=== PATIENT | male | born 1970 | race Hispanic/Latino ===

== ENCOUNTER 2016-12-02 03:19 | Inpatient (IN) | payer MEDICAID ==
[2016-12-02] MEDS ORDERED: Albuterol-Ipratrop 3 mg / 0.5 (3 ml) UD INH STA (03:55)
[2016-12-02 04:11] LABS: EOS # 0.3 K/uL (0.0-0.7)
[2016-12-02 04:17] LABS: CHLORIDE 100 mmol/L (98-107); POTASSIUM 3.7 mmol/L (3.6-5.2); SODIUM 139 mmol/L (132-148)
[2016-12-02 04:19] LABS: GFR AFRICAN-AMERICAN > 60
[2016-12-02 04:20] LABS: ALB/GLOB RATIO 1.2 (1.0-2.1); ALKALINE PHOSPHATASE 77 U/L (38-126); ALT/SGPT 24 U/L (21-72); AST/SGOT 24 U/L (17-59); BILIRUBIN,TOTAL 0.2 mg/dL (0.2-1.3); BLOOD UREA NITROGEN 21 mg/dL (9-20); CARBON DIOXIDE 29 mmol/L (22-30); GLUCOSE,RANDOM 159 mg/dL (75-110); TOTAL PROTEIN 6.3 g/dL (6.3-8.3)
[2016-12-02 04:34] LABS: BASO # 0.1 K/uL (0.0-0.2); BASO % 0.6 % (0.0-2.0); EOS % 2.8 % (0.0-4.0); LYMPH # 2.1 K/uL (1.0-4.3); LYMPH % 23.6 % (20.0-40.0); MEAN CELL VOLUME 89.1 fL (80.0-94.0); MEAN CORPUSCULAR HEMOGLOBIN 29.1 pg (27.0-31.0); MEAN CORPUSCULAR HGB CONC 32.7 g/dL (33.0-37.0); MEAN PLATELET VOLUME 6.5 fL (7.2-11.7); MONO # 0.6 K/uL (0.0-0.8); MONO % 6.2 % (0.0-10.0); RED CELL DISTRIBUTION WIDTH 15.3 % (11.5-14.5); WHITE BLOOD COUNT 9.1 K/uL (4.8-10.8)
--- NOTE | 2016-12-02 06:08 | C.PDOC ---
History Of Present Illness 46 year old male presents to the ED by ALS with complaints of asthma like symptoms including dry cough since early last evening. Patient denies taking any medicine, chest pain, fever, sick contacts, and recent travel. Chief Complaint (Nursing): Shortness Of Breath History Per: Patient History/Exam Limitations: no limitations Onset/Duration Of Symptoms: Hrs Current Symptoms Are (Timing): Still Present Associated Symptoms: Other (dry cough ). denies: Fever, Chills, Bloody Cough Past Medical History Reviewed: Historical Data, Nursing Documentation, Vital Signs Vital Signs: Last Vital Signs Temp 98.3 F 12/02/16 06:31 Pulse 83 12/02/16 06:31 Resp 20 12/02/16 06:31 BP 166/90 H 12/02/16 06:31 Pulse Ox 96 12/02/16 06:34 - Medical History PMH: Asthma, HTN, Hypercholesterolemia - [facility] Procedures DETOXIFICATION SERVICES FOR SUBSTANCE ABUSE TREATMENT (05/22/15) Family History: States: Unknown Family Hx - Social History Hx Tobacco Use: Yes Hx Alcohol Use: No Hx Substance Use: Yes - Immunization History Hx Tetanus Toxoid Vaccination: No Hx Influenza Vaccination: No Hx Pneumococcal Vaccination: No Review Of Systems Constitutional: Negative for: Fever, Chills Eyes: Negative for: Pain Cardiovascular: Negative for: Chest Pain Respiratory: Positive for: Cough, Shortness of Breath Gastrointestinal: Negative for: Nausea, Vomiting, Abdominal Pain, Diarrhea Physical Exam - Physical Exam Appears: Non-toxic, No Acute Distress Skin: Warm, Dry Eye(s): bilateral: PERRL, EOMI Ear(s): Bilateral: Normal Nose: Normal Throat: Normal Neck: Normal ROM, Supple Cardiovascular: Rhythm Regular, Other (Sinus rhythm 84 normal axis and normal intervals ) Respiratory: No Accessory Muscle Use, No Rales, No Rhonchi, No Stridor, Wheezing (diffuse expiratory wheeze ) Gastrointestinal/Abdominal: Soft, No Tenderness, No Distention, No Guarding, No Rebound Extremity: Normal ROM, No Tenderness Neurological/Psych: Oriented x3 ED Course And Treatment - Laboratory Results Result Diagrams: 12/02/16 04:06 12/02/16 04:06 O2 Sat by Pulse Oximetry: 96 - Physician Consult Information Time Consulting Physician Contacted: 06:10 (Spoke to Dr. Barillas regarding and choosing to admit) Physician Contacted: Valentino Barillas Disposition - Disposition Disposition: HOSPITALIZED Disposition Time: 05:45 Condition: STABLE - Clinical Impression Clinical Impression: Exacerbation of asthma - Josetteibe Statement The provider has reviewed the documentation as recorded by the Scribe Katelin Camacho All medical record entries made by the Josetteibe were at my direction and personally dictated by me. I have reviewed the chart and agree that the record accurately reflects my personal performance of the history, physical exam, medical decision making, and the department course for this patient. I have also personally directed, reviewed, and agree with the discharge instructions and disposition.
--- NOTE | 2016-12-02 08:14 | RAD ---
HISTORY: r/o infiltrate COMPARISON: No prior. TECHNIQUE: Chest PA and lateral FINDINGS: LUNGS: Mild venous congestion. Right hilar prominence. Small nodular density at the right costophrenic may represent vessel on end. PLEURA: No significant pleural effusion identified. No pneumothorax apparent. CARDIOVASCULAR: Normal. OSSEOUS STRUCTURES: Suggestion of a deformity of several left lateral ribs. VISUALIZED UPPER ABDOMEN: Normal. OTHER FINDINGS: None. IMPRESSION: Mild venous congestion. Right hilar prominence. Small nodular density at the right costophrenic may represent vessel on end.
[2016-12-02] MEDS: Pantoprazole 40 mg EC Tab PO SCH (09:13)
[2016-12-02] MEDS: MethylPREDNISolone 40 mg Vial IV SCH ×2 (12:53→20:16)
--- NOTE | 2016-12-02 13:38 | PCM.PSYCH ---
Initial Psychiatric Evaluation - Initial Psychiatric Evaluation Type of Admission: Voluntary Legal Status: Capacity Chief Complaint (in patient's own words): I came here to get help. History of Present Illness and Precipitating Events: This is a 46 years old homeless CM who came to the ED because of asthma exacerbation. today pt was consulted because of h/o heroin abuse. Patient has a long history of abusing heroin. He was just discharged from [facility] detox last year. As per the patient, soon he relapsed on heroin soon after finishing his detox last year. He ahs been abusing 10-15 bags of heroin alongwith a couple of bags of cocaine on a daily basis. Yesterday he injected almost 10 bags along with 2 bags of cocaine, became increasingly anxious and sated developing withdrawal s/s, and shortness of breath, so came to the hospital to get help. Pt reports anxiety and withdrawal symptoms from heroin including sweating, nausea, anxiety and headaches. Patient states irritable mood, but denies any feelings of hopelessness and helplessness. He denies any SI/HI or any auditory or visual hallucinations. He denies any other substance abuse. Current Medications: Active Medications Generic Name Dose Route Start Last Admin Trade Name Primoq PRN Reason Stop Dose Admin Albuterol/Ipratropium 3 ml 12/02/16 08:00 Duoneb 3 Mg/0.5 Mg (3 Ml) Ud INH RQ4 [facility] Clonidine HCl 0.2 mg 12/02/16 13:00 12/02/16 13:16 Catapres PO 0.2 mg BID [facility] Administration Methadone HCl 10 mg 12/02/16 10:00 12/02/16 09:13 Methadone PO 10 mg DAILY [facility] Administration Methylprednisolone 40 mg 12/02/16 12:00 12/02/16 12:53 Solu-Medrol IV 40 mg Q6 [facility] Administration Pantoprazole Sodium 40 mg 12/02/16 10:00 12/02/16 09:13 Protonix Ec Tab PO 40 mg DAILY [facility] Administration Pneumococcal Polyvalent Vaccine 0.5 ml 12/04/16 10:00 Pneumovax 23 Vaccine IM 12/04/16 10:01 .ONCE ONE Past Psychiatric History - Past Psychiatric History Previous Treatment History: Inpatient Pertinent Medical Hx (Current Medical&Sleep Prob, Allergies): Allergies Allergy/AdvReac Type Severity Reaction Status Date / Time No Known Allergies Allergy Unverified 12/02/16 03:35 No Known Home Med 12/02/16 Review of Systems - Review of Systems All systems: reviewed and no additional remarkable complaints except - Psychiatric Psychiatric: Anxiety, Irritability Mental Status Examination - Personal Presentation Personal Presentation: Looks stated age - Affect Affect: Constricted - Motor Activity Motor Activity: Calm - Reliability in Providing Information Reliability in Providing Information: Good - Speech Speech: Organized - Mood Mood: Anxious - Formal Thought Process Formal Thought Process: No Impairment - Obsessions/Compulsions Obsessions: No Compulsions: No - Cognitive Functions Orientation: Person, Place, Situation, Time Sensorium: Alert Attention/Concentration: Attentive Abstract Thinking: [place] Estimate of Intelligence: Average Judgement: Imparied, as evidence by: Poor judgement, Intact, as evidence by: Insight regarding need for hospitalization - Risk Risk: Withdrawal, Diminished functioning - Strength & Assets Inventory Strength & Assets Inventory: Cooperative - Limitations Limitations: Living alone DSM 5 DX - DSM 5 DSM 5 Diagnosis: Opioid use disorder severe Opioid withdrawal Cocaine use disorder severe - Recommended/Plan of Treatment Treatment Recommendations and Plan of Treatment: Opioid use disorder severe CBT Psychoeducation Supportive therapy, individual therapy Use ND for abstinence Opioid withdrawal CBT Psychoeducation Supportive therapy, individual therapy Clonidine when necessary Start methadone taper Cocaine use disorder severe CBT Psychoeducation Use ND for abstinence - Smoking Cessation Smoking Cessation Initiated: Yes
[2016-12-03] MEDS: Albuterol-Ipratrop 3 mg / 0.5 (3 ml) UD INH SCH ×6 (00:53→20:46)
[2016-12-03] MEDS: MethylPREDNISolone 40 mg Vial IV SCH ×4 (01:54→17:50)
[2016-12-03] MEDS: Pantoprazole 40 mg EC Tab PO SCH (09:16)
--- NOTE | 2016-12-03 11:07 | CP.PCM.PN ---
Subjective - Date & Time of Evaluation Date of Evaluation: 12/03/16 Time of Evaluation: 08:55 - Subjective Subjective: Medicine Progress Note- Dr. Barillas's service: Patient seen and examined at bedside this AM. 46M admitted 12/02/16 for asthma exacerbation with history of cocaine/opioid abuse. Patient reports he is still not feeling well. Admits to intermittent episodes of chest pain, SOB, abdominal pain, nausea, vomiting. Denies diarrhea or vomiting. Denies tremors. He feels sleepy because he has not been able to sleep due to noise at the hospital. Seen and examined by Dr. Casillas yesterday for cocaine/opioid abuse. Objective - Vital Signs/Intake and Output Vital Signs (last 24 hours): Temp Pulse Resp BP Pulse Ox 97.4 F L 97 H 17 174/104 H 98 12/03/16 07:45 12/03/16 07:45 12/03/16 07:45 12/03/16 07:45 12/03/16 07:45 - Medications Medications: Current Medications Albuterol/Ipratropium (Duoneb 3 Mg/0.5 Mg (3 Ml) Ud) 3 ml INH RQ4 [facility] Last Admin: 12/03/16 09:11 Dose: 3 ml Aspirin (Aspirin Chewable) 81 mg PO DAILY [facility] Last Admin: 12/03/16 09:17 Dose: 81 mg Clonidine HCl (Catapres) 0.2 mg PO BID [facility] Last Admin: 12/03/16 09:16 Dose: 0.2 mg Clonidine HCl (Catapres) 0.1 mg PO Q6 PRN PRN Reason: Opiate reversal Hydrochlorothiazide (Hydrodiuril) 25 mg PO DAILY [facility] Last Admin: 12/03/16 09:16 Dose: 25 mg Lisinopril (Zestril) 20 mg PO DAILY [facility] Last Admin: 12/03/16 09:16 Dose: 20 mg Lorazepam (Ativan) 2 mg IVP Q4H PRN PRN Reason: withdrawal Last Admin: 12/03/16 06:16 Dose: 2 mg Methadone HCl (Methadone) 10 mg PO DAILY [facility] Last Admin: 12/03/16 09:16 Dose: 10 mg Methylprednisolone (Solu-Medrol) 40 mg IV Q6 [facility] Last Admin: 12/03/16 06:16 Dose: 40 mg Nicotine (Nicoderm Cq) 1 patch TD DAILY [facility] Last Admin: 12/03/16 09:17 Dose: 1 patch Pantoprazole Sodium (Protonix Ec Tab) 40 mg PO DAILY [facility] Last Admin: 12/03/16 09:16 Dose: 40 mg Pneumococcal Polyvalent Vaccine (Pneumovax 23 Vaccine) 0.5 ml IM .ONCE ONE Stop: 12/04/16 10:01 Trazodone HCl (Desyrel) 50 mg PO HS [facility] Last Admin: 12/02/16 21:45 Dose: 50 mg - Constitutional Appears: No Acute Distress, Unkempt - Head Exam Head Exam: NORMAL INSPECTION, NORMOCEPHALIC - Eye Exam Eye Exam: EOMI, Normal appearance - ENT Exam ENT Exam: Mucous Membranes Dry - Neck Exam Neck Exam: Full ROM - Respiratory Exam Respiratory Exam: Clear to Ausculation Bilateral, NORMAL BREATHING PATTERN - Cardiovascular Exam Cardiovascular Exam: REGULAR RHYTHM, +S1, +S2 - GI/Abdominal Exam GI & Abdominal Exam: Soft. absent: Distended, Tenderness - Extremities Exam Extremities Exam: Full ROM, Normal Inspection - Neurological Exam Neurological Exam: Alert, Awake, Oriented x3 - Psychiatric Exam Psychiatric exam: Normal Affect, Normal Mood - Skin Skin Exam: Warm. absent: Normal Color Additional comments: +red face Assessment and Plan (1) Asthma exacerbation Assessment & Plan: Albuterol INH Q4H [facility] Solumedrol 40 mg IVP Q6H Status: Acute (2) HTN (hypertension) Assessment & Plan: Elevated this AM. Clonidine 0.2 mg PO BID HCTZ 25 mg PO daily Lisinopril 20 mg ---> 40 mg PO daily NO Beta Aries as patient uses cocaine. Status: Acute (3) Heroin dependence Assessment & Plan: Detox consult placed- Dr. Casillas- following Methadone 10 mg PO daily Clonidine 0.1 mg PO Q6H PRN reversal of opiate Ativan 1mg IVP Q4H PRN withdrawal Trazodone 50 mg PO HS Aspiration and Seizure precautions. Status: Acute (4) Prophylactic measure Assessment & Plan: Protonix 40 mg PO daily SCDs All management as per Dr. Barillas Status: Acute
[2016-12-03 17:17] VITALS: RESP 20; TEMP 98.2
--- NOTE | 2016-12-03 18:39 | CARD ---
APPROVED REPORT EKG Measurement Heart [id number] <Conclusion> Normal sinus rhythm Normal ECG
[2016-12-04] MEDS: MethylPREDNISolone 40 mg Vial IV SCH ×3 (00:01→11:28)
[2016-12-04] MEDS: Albuterol-Ipratrop 3 mg / 0.5 (3 ml) UD INH SCH ×4 (01:13→11:34)
[2016-12-04 01:47] VITALS: BP 139/85
[2016-12-04 07:17] LABS: BASO % 0.5 % (0.0-2.0); HEMATOCRIT 43.3 % (35.0-51.0); LYMPH % 9.7 % (20.0-40.0); MEAN CELL VOLUME 87.6 fL (80.0-94.0); MEAN CORPUSCULAR HEMOGLOBIN 28.9 pg (27.0-31.0); MEAN PLATELET VOLUME 6.5 fL (7.2-11.7); MONO # 0.4 K/uL (0.0-0.8); MONO % 3.4 % (0.0-10.0); PLATELET COUNT 299 K/uL (130-400); RED CELL DISTRIBUTION WIDTH 15.1 % (11.5-14.5); WHITE BLOOD COUNT 10.7 K/uL (4.8-10.8)
[2016-12-04 07:31] LABS: CHLORIDE 95 mmol/L (98-107); POTASSIUM 4.3 mmol/L (3.6-5.2); SODIUM 138 mmol/L (132-148)
[2016-12-04 07:33] LABS: ALB/GLOB RATIO 1.2 (1.0-2.1); ALKALINE PHOSPHATASE 66 U/L (38-126); AST/SGOT 19 U/L (17-59); BILIRUBIN,TOTAL 0.5 mg/dL (0.2-1.3); CARBON DIOXIDE 28 mmol/L (22-30); GFR AFRICAN-AMERICAN > 60; TOTAL PROTEIN 7.1 g/dL (6.3-8.3)
[2016-12-04 07:34] LABS: ALT/SGPT 12 U/L (21-72); BLOOD UREA NITROGEN 31 mg/dL (9-20); GLUCOSE,RANDOM 145 mg/dL (75-110); MAGNESIUM 1.8 mg/dL (1.6-2.3); PHOSPHOROUS 5.1 mg/dL (2.5-4.5)
[2016-12-04 08:48] LABS: NEUTROPHIL 86 % (50-75); TOTAL CELLS COUNTED 100
--- NOTE | 2016-12-04 09:39 | CP.PCM.PN ---
Subjective - Date & Time of Evaluation Date of Evaluation: 12/04/16 Time of Evaluation: 07:35 - Subjective Subjective: Medicine Progress Note- Dr. Barillas's service: Patient seen and examined at bedside this AM. Patient is sleeping and states he has not slept well secondary to being woken up for vitals and lab draws. He admits to occasional abdominal pain, chest pain, SOB. No fevers, chills, diarrhea. He reports poor appetite. Requesting detox. Discharge planning as per Dr. Barillas. Objective - Vital Signs/Intake and Output Vital Signs (last 24 hours): Temp Pulse Resp BP Pulse Ox 98.2 F 93 H 20 139/85 97 12/03/16 23:35 12/04/16 04:51 12/03/16 23:35 12/03/16 23:35 12/03/16 23:35 Intake and Output: 12/04/16 12/04/16 06:59 18:59 Intake Total 900 Output Total 800 Balance 100 - Medications Medications: Current Medications Albuterol/Ipratropium (Duoneb 3 Mg/0.5 Mg (3 Ml) Ud) 3 ml INH RQ4 [facility] Last Admin: 12/04/16 07:25 Dose: Not Given Aspirin (Aspirin Chewable) 81 mg PO DAILY [facility] Last Admin: 12/03/16 09:17 Dose: 81 mg Clonidine HCl (Catapres) 0.2 mg PO BID [facility] Last Admin: 12/03/16 17:53 Dose: 0.2 mg Clonidine HCl (Catapres) 0.1 mg PO Q6 PRN PRN Reason: Opiate reversal Hydrochlorothiazide (Hydrodiuril) 25 mg PO DAILY [facility] Last Admin: 12/03/16 09:16 Dose: 25 mg Lisinopril (Zestril) 40 mg PO DAILY [facility] Lorazepam (Ativan) 2 mg IVP Q4H PRN PRN Reason: withdrawal Last Admin: 12/04/16 00:02 Dose: 2 mg Methadone HCl (Methadone) 10 mg PO DAILY [facility] Last Admin: 12/03/16 09:16 Dose: 10 mg Methylprednisolone (Solu-Medrol) 40 mg IV Q6 [facility] Last Admin: 12/04/16 05:19 Dose: 40 mg Nicotine (Nicoderm Cq) 1 patch TD DAILY [facility] Last Admin: 12/03/16 09:17 Dose: 1 patch Pantoprazole Sodium (Protonix Ec Tab) 40 mg PO DAILY [facility] Last Admin: 12/03/16 09:16 Dose: 40 mg Pneumococcal Polyvalent Vaccine (Pneumovax 23 Vaccine) 0.5 ml IM .ONCE ONE Stop: 12/04/16 10:01 Trazodone HCl (Desyrel) 50 mg PO HS [facility] Last Admin: 12/03/16 21:27 Dose: 50 mg - Labs Labs: 12/04/16 06:47 12/04/16 06:47 - Constitutional Appears: No Acute Distress, Unkempt - Eye Exam Eye Exam: EOMI, Normal appearance - ENT Exam ENT Exam: Mucous Membranes Moist - Neck Exam Neck Exam: Full ROM, Normal Inspection - Respiratory Exam Respiratory Exam: Clear to Ausculation Bilateral, NORMAL BREATHING PATTERN - Cardiovascular Exam Cardiovascular Exam: REGULAR RHYTHM, +S1, +S2 - GI/Abdominal Exam GI & Abdominal Exam: Soft. absent: Distended, Tenderness - Extremities Exam Extremities Exam: Full ROM, Normal Inspection - Neurological Exam Neurological Exam: Alert, Awake - Psychiatric Exam Psychiatric exam: Normal Mood - Skin Skin Exam: Dry, Warm Additional comments: flushed face Assessment and Plan - Assessment and Plan (Free Text) Assessment: (1) Asthma exacerbation Assessment & Plan: Patient discharged with Ventolin HFA, Advair Q12H, Medrol dose pack. Status: Acute (2) HTN (hypertension) Assessment & Plan: Improved. Patient discharged on: Clonidine 0.2 mg PO BID HCTZ 25 mg PO daily Lisinopril 40 mg PO daily NO Beta Aries as patient uses cocaine. Status: Acute (3) Heroin dependence Assessment & Plan: Detox consult placed- Dr. Casillas- following As per psych team, referred patient is candidate for IOP [facility]. Status: Acute (4) Prophylactic measure Assessment & Plan: Protonix 40 mg PO daily SCDs Discharge planning as per Dr. Barillas All management as per Dr. Barillas Status: Acute
[2016-12-04] MEDS: Pantoprazole 40 mg EC Tab PO SCH (09:53)
[2016-12-04] MEDS ORDERED: Pneumococcal 23-Valent Vaccine IM ONE (10:00)
[2016-12-04 11:45] VITALS: PULSE 109; O2SAT 92
== END 2016-12-04 14:59 | disposition home or self-care (01) | DRG 96 ==
LOC: C.ER 03:19 → C.9E 06:12 → C.3T 06:27 → C.6T 14:29
PROVIDERS: ADMIT Internal Medicine Pulmonary Disease; ATTEND Internal Medicine Pulmonary Disease
PROC: HZ2ZZZZ Detoxification Services for Substance Abuse Treatment (ICD-10-PCS; principal; 2016-12-02)
DX: J45.901 Unspecified asthma with (acute) exacerbation (principal); F11.23 Opioid dependence with withdrawal; I10 Essential (primary) hypertension; F14.90 Cocaine use, unspecified, uncomplicated; E78.00 Pure hypercholesterolemia, unspecified; F17.210 Nicotine dependence, cigarettes, uncomplicated

== ENCOUNTER 2017-01-15 17:11 | Inpatient (IN) | payer MEDICAID ==
[2017-01-15] MEDS ORDERED: Bacitracin 500 Units/gm Oint Foilpak UD TOP ONE (18:25)
[2017-01-15] MEDS ORDERED: Albuterol-Ipratrop 3 mg / 0.5 (3 ml) UD IH STA ×2 (18:25→19:55)
[2017-01-15 18:45] LABS: BASO # 0.1 K/uL (0.0-0.2); EOS # 0.1 K/uL (0.0-0.7); EOS % 1.3 % (0.0-4.0); HEMATOCRIT 35.6 % (35.0-51.0); LYMPH # 1.9 K/uL (1.0-4.3); LYMPH % 26.6 % (20.0-40.0); MEAN CELL VOLUME 90.2 fL (80.0-94.0); MEAN CORPUSCULAR HEMOGLOBIN 30.2 pg (27.0-31.0); MEAN CORPUSCULAR HGB CONC 33.5 g/dL (33.0-37.0); MEAN PLATELET VOLUME 6.3 fL (7.2-11.7); MONO # 0.5 K/uL (0.0-0.8); RED CELL DISTRIBUTION WIDTH 14.8 % (11.5-14.5); WHITE BLOOD COUNT 7.2 K/uL (4.8-10.8)
[2017-01-15] MEDS ORDERED: Albuterol-Ipratrop 3 mg / 0.5 (3 ml) UD ONE ×2 (18:47→20:10)
[2017-01-15 18:48] LABS: RBC URINE < 1 /hpf (0-3); URINE BILIRUBIN NEGATIVE (NEGATIVE); URINE BLOOD NEGATIVE (NEGATIVE); URINE COLOR Yellow (YELLOW); URINE GLUCOSE (UA) NORMAL (Normal); URINE KETONE NEGATIVE (NEGATIVE); URINE LEUKOCYTE ESTERASE NEG Leu/uL (Negative); URINE PROTEIN 1+ mg/dL (NEGATIVE); URINE UROBILINOGEN NORMAL mg/dL (0.2-1.0); WBC URINE < 1 /hpf (0-5)
[2017-01-15 18:53] LABS: CHLORIDE 100 mmol/L (98-107)
[2017-01-15] MEDS ORDERED: Bacitracin 500 Units/gm Oint Foilpak UD ONE (18:53)
[2017-01-15 18:54] LABS: POTASSIUM 3.9 mmol/L (3.6-5.2); SODIUM 137 mmol/L (132-148)
[2017-01-15 18:56] LABS: ALB/GLOB RATIO 1.3 (1.0-2.1); ALKALINE PHOSPHATASE 67 U/L (38-126); ALT/SGPT 24 U/L (21-72); AST/SGOT 33 U/L (17-59); BILIRUBIN,TOTAL 0.7 mg/dL (0.2-1.3); BLOOD UREA NITROGEN 18 mg/dL (9-20); CARBON DIOXIDE 32 mmol/L (22-30); GFR AFRICAN-AMERICAN > 60; TOTAL PROTEIN 6.2 g/dL (6.3-8.3)
[2017-01-15 18:57] LABS: GLUCOSE,RANDOM 127 mg/dL (75-110)
[2017-01-15 18:58] LABS: ALCOHOL SERUM < 10 mg/dl (0-10); CALCIUM 8.4 mg/dl (8.6-10.4)
[2017-01-15] MEDS ORDERED: Amoxicillin-Clav 875-125 mg Tab PO STA (19:55)
[2017-01-15] MEDS ORDERED: Amoxicillin-Clav 875-125 mg Tab PO ONE (20:08)
--- NOTE | 2017-01-15 20:38 | RAD ---
PROCEDURE: CHEST RADIOGRAPH, 1 VIEW HISTORY: Detox/Psy COMPARISON: 12/02/2016 FINDINGS: LUNGS: No focal infiltrate or effusion. Bibasilar nodular densities may represent nipple shadows. Correlation with nipple markers may be helpful. PLEURA: No pneumothorax or pleural fluid seen. CARDIOVASCULAR: Normal. OSSEOUS STRUCTURES: No significant abnormalities. VISUALIZED UPPER ABDOMEN: Normal. OTHER FINDINGS: None. IMPRESSION: No active disease.
--- NOTE | 2017-01-15 20:39 | C.PDOC ---
Time Seen by Provider: 01/15/17 18:18 Chief Complaint (Nursing): Substance Abuse History Per: Patient Onset/Duration Of Symptoms: Days Current Symptoms Are (Timing): Still Present Suicide/Self Injury Attempted (Context): None Modifying Factor(s): Narcotics Severity: Moderate Associated Symptoms: Depression. denies: Suicidal Plan Additional History Per: Prior Records Past Medical History Reviewed: Historical Data, Nursing Documentation, Vital Signs Vital Signs: Last Vital Signs Temp 97.4 F L 01/15/17 19:50 Pulse 83 01/15/17 19:50 Resp 16 01/15/17 19:50 BP 159/96 H 01/15/17 19:50 Pulse Ox 98 01/15/17 19:50 - Medical History PMH: Asthma, COPD, HTN, Hypercholesterolemia - [facility] Procedures DETOXIFICATION SERVICES FOR SUBSTANCE ABUSE TREATMENT (12/02/16) Family History: States: Unknown Family Hx - Social History Hx Tobacco Use: Yes Hx Alcohol Use: No Hx Substance Use: Yes (snorts Heroin) - Immunization History Hx Tetanus Toxoid Vaccination: No Hx Influenza Vaccination: No Hx Pneumococcal Vaccination: No Review Of Systems Except As Marked, All Systems Reviewed And Found Negative. Constitutional: Negative for: Fever Cardiovascular: Negative for: Chest Pain Respiratory: Positive for: Wheezing. Negative for: Hemoptysis Gastrointestinal: Negative for: Vomiting, Abdominal Pain Musculoskeletal: Negative for: Neck Pain Skin: Positive for: Other (abrasion on left leg) Neurological: Negative for: Weakness, Numbness, Seizures, Altered Mental Status Physical Exam - Physical Exam Appears: Non-toxic, No Acute Distress Skin: Warm, Dry Head: Atraumatic, Normacephalic Eye(s): bilateral: PERRL, EOMI Neck: Normal ROM, Supple Cardiovascular: Rhythm Regular Respiratory: No Accessory Muscle Use, Wheezing Gastrointestinal/Abdominal: Soft, No Tenderness Extremity: Normal ROM, No Calf Tenderness, Other (Abrasion on left anterior leg , possibly starting to get infected. ) Neurological/Psych: Oriented x3, Normal Motor, Normal Sensation ED Course And Treatment - Laboratory Results Result Diagrams: 01/15/17 18:39 01/15/17 18:39 Lab Interpretation: No Acute Changes O2 Sat by Pulse Oximetry: 98 Pulse Ox Interpretation: Normal - Radiology CXR: Interpreted by Me, Viewed By Me CXR Interpretation: Yes: No Acute Disease Progress Note: Pt is medically stable for psychiatric admission. However, I recommend continuing the Prednisone for the asthma and the Augmentin for the leg abrasion. Reassessment Condition: Improved Progress - Interventions Interventions:: Observation - Medications Administered Oral: Corticosteriod, Other (Abx) Inhaled nebulized: Anticholinergic, Beta-2 agonist - Data Reviewed Data Reviewed: Lab, Diagnostic imaging, Old records - Patient Status Patient status: Mostly improved - Continuity of Care Discussed patient case with:: Patient, ED Nurse Disposition Counseled Patient/Family Regarding: Studies Performed, Diagnosis, Smoking Cessation - Disposition Disposition: HOSPITALIZED Disposition Time: 20:41 Condition: STABLE - Clinical Impression Clinical Impression: Opioid use disorder, severe, dependence, Depression, COPD (chronic obstructive pulmonary disease), Abrasion of leg, left, infected Decision To Admit - Pt Status Changed To: Hospital Disposition Of: Inpatient - Admit Certification Admit to Inpatient:: After my assessment, the patient will require hospitalization for at least two midnights. This is because of the severity of symptoms shown, intensity of services needed, and/or the medical risk in this patient being treated as an outpatient. - InPatient: Physician Admission Certification: I certify that this patient requires 2 or more midnights of care for the following reason:: Psych. - . Bed Request Type: Psychiatry Admitting Physician: Deanna Pimentel Patient Diagnosis: Opioid use disorder, severe, dependence, Depression, COPD (chronic obstructive pulmonary disease), Abrasion of leg, left, infected
[2017-01-15 21:39] VITALS: BP 162/88; TEMP 98.5; O2SAT 96
[2017-01-15] MEDS ORDERED: Albuterol HFA 90 mcg/actuation (8 g) INH PRN (21:45)
[2017-01-15 22:19] VITALS: PULSE 86; RESP 18
--- NOTE | 2017-01-16 14:59 | PCM.PSYCH ---
Initial Psychiatric Evaluation - Initial Psychiatric Evaluation Type of Admission: Voluntary Legal Status: Capacity Chief Complaint (in patient's own words): "I want to stop using heroin" Patient's Reaction to Hospitalization: voluntary History of Present Illness and Precipitating Events: Patient is a 46 year old male with PMHx of COPD, opioid use disorder and cocaine use disorder presenting to get off of heroin. Patient says he snorts 5- 10 bags per day of heroin for 3 years. He was at a place called [facility] getting maintenance methadone at 90mg. The program found out he was smoking cocaine and said he has to be discharged from the program so they tapered him down by 5mg each time to 10mg at which point he left the program. This was one month ago. He relapsed and started doing 5 to 10 bags of heroin a day again for the past month. Patient says he has lost 100 pounds in the past 3 years secondary to cocaine use. Patient also smokes 1ppd of cigarettes. Patient denies IV drug use, ETOH use and marijuana. Patient denies history of HIV or AIDS or Hep C. Patient says this is his first time in the psychiatric floor and that he wants detox. Patient was very aggravated on exam. He wanted more methadone saying that he was on 90mg previously. It was explained to him that 20 mg last night and 15 this morning should be enough for him since he has only been doing 5 to 10 bags per day for the past month. Patient wanted to leave AMA. Options of suboxone and injections were given to patient. He still wanted to leave AMA. He was screaming in the hallway how he wanted to leave. He was informed that he might feel better in a few hours and to give time for the methadone to kick in. Patient still wanted to go home. 4 hours later, patient was still here and said he no longer wanted to leave. Psychiatric history: denies Family psychiatric history: denies Substance abuse: heroin and cocaine Current Medications: Active Medications Generic Name Dose Route Start Last Admin Trade Name Freq PRN Reason Stop Dose Admin Albuterol 1 puff 01/15/17 21:45 Ventolin Hfa 90 Mcg/Actuation (8 G) INH RQ4 PRN Shortness of Breath Clonidine HCl 0.1 mg 01/15/17 21:47 Catapres PO Q6 PRN s/s of withdrawals Hydroxyzine HCl 50 mg 01/15/17 21:40 01/16/17 09:49 Atarax PO 50 mg Q4 PRN Administration Anxiety Ibuprofen 600 mg 01/15/17 21:40 01/16/17 09:49 Motrin Tab PO 600 mg Q6 PRN Administration Pain, moderate (4-7) Methadone HCl 15 mg 01/16/17 10:00 01/16/17 09:49 Methadone PO 01/19/17 09:59 15 mg Q24H SHERRON Administration Taper Trazodone HCl 100 mg 01/15/17 21:40 01/15/17 21:56 Desyrel PO 100 mg HS PRN Administration Insomnia Past Psychiatric History - Past Psychiatric History Previous Treatment History: Inpatient Prior Professional Help: Yes Prior Psychiatric Treatment: Detox At [facility] hospital: [facility] Date: 05/23/15 Pertinent Medical Hx (Current Medical&Sleep Prob, Allergies): Allergies Allergy/AdvReac Type Severity Reaction Status Date / Time No Known Allergies Allergy Verified 12/02/16 17:20 Albuterol HFA [Ventolin HFA 90 mcg/actuation (8 g)] 1 puff IH Q4H PRN #1 inhaler 12/04/16 Review of Systems - Constitutional Constitutional: absent: Fever, Chills - Cardiovascular Cardiovascular: absent: Chest Pain - Respiratory Respiratory: absent: Dyspnea - Gastrointestinal Gastrointestinal: Abdominal Pain. absent: Nausea, Vomiting - Musculoskeletal Musculoskeletal: Arthralgias - Neurological Neurological: Headaches Mental Status Examination - Personal Presentation Personal Presentation: Looks stated age, Dressed appropriate to season - Affect Affect: Broad - Motor Activity Motor Activity: Psychomotor Agitation - Reliability in Providing Information Reliability in Providing Information: Good - Speech Speech: Organized - Mood Mood: Anxious Additional comments: agitated - Formal Thought Process Formal Thought Process: No Impairment - Obsessions/Compulsions Obsessions: No Compulsions: No - Cognitive Functions Orientation: Person, Place, Situation, Time Sensorium: Alert Attention/Concentration: Attentive Judgement: Imparied, as evidence by: Poor judgement Memory: Recent intact, as evidence by: Ability to recall events of the day, Remote intact, as evidenced by: Abilit to recall sig. life events - Risk Risk: Withdrawal - Strength & Assets Inventory Strength & Assets Inventory: Intelligence, Life experience DSM 5 DX - DSM 5 DSM 5 Diagnosis: Opioid dependence Opioid withdrawal Cocaine use disorder Nicotine dependence COPD - Recommended/Plan of Treatment Treatment Recommendations and Plan of Treatment: 1. Opioid withdrawal - methadone taper (20mg yesterday, 15 today, 10 tomorrow, 5 on Saturday) - prn meds - use COWs - psychoeducation - support - attend groups and activitis 2. Opioid dependence - consider rehab or maintenance - support 3.Nicotine dependence - use patch 4. Cocaine use disorder - monitor during withdrawal 5. Asthma Ventolin 1 puff INH RQ4 PRN SOB Projected ELOS: 4 days Prognosis: fair - Smoking Cessation Smoking Cessation Initiated: Yes
--- NOTE | 2017-01-16 20:48 | PCM.PYCHDC ---
Mental Status Examination - Mental Status Examination Orientation: Person, Place, Situation, Time Memory: Intact Mood: Other (angry) Affect: Constricted Speech: Loud Attention: Poor Concentration: Poor Association: WNL Fund of Knowledge: Poor Formal Thought Process: No Impairment Suicidal Ideation: No Current Homicidal Ideation?: No Discharge Summary - Discharge Note Reason for Hospitalization: Depression, heroin withdrawal Consultations:: List each consultation separately and include: 1. Reason for request. 2. Findings. 3. Follow-up Summary of Hospital Course include:: 1. Description of specific treatment plan utilized for patients during their course of treatmen. 2. Summarize the time- course for resolution of acute symptoms and/or regressed behaviors. 3. Describe issues identified and worked on during hospitalization. 4. Describe medication utilized. 5. Describe medical problems identified and treated. 6. Reassessment of suicide risk Summary of Hospital Course: The pt got admitted last night, started on 20 mg methadone for detox, along with other meds. However, this morning he demanded for d/c AMA after the tx plan mtg. Rsks discussed, incl. relapse, OD and even . He was stable enough and claimed he lied to get in here, ie saying suicidal. - Final Diagnosis (DSM 5) Condition upon Discharge: STABLE DSM 5: Opioid dependence Opioid withdrawal Cocaine use disorder Nicotine dependence COPD Disposition: AGAINST MEDICAL ADVICE Follow-up Treatment Plan: Return to ER if needed Go to [facility] program - which is his plan now Attend [facility]
== END 2017-01-16 16:52 | disposition left against medical advice (07) | DRG 743 ==
LOC: C.ER 17:11 → C.5E 20:42
PROVIDERS: ADMIT Psychiatry & Neurology Psychiatry; ATTEND Psychiatry & Neurology Psychiatry
PROC: HZ2ZZZZ Detoxification Services for Substance Abuse Treatment (ICD-10-PCS; principal; 2017-01-15)
PROC: HZ59ZZZ Individual Psychotherapy for Substance Abuse Treatment, Supportive (ICD-10-PCS; 2017-01-15)
DX: F11.23 Opioid dependence with withdrawal (principal); F14.10 Cocaine abuse, uncomplicated; F17.210 Nicotine dependence, cigarettes, uncomplicated; F32.9 Major depressive disorder, single episode, unspecified; J44.9 Chronic obstructive pulmonary disease, unspecified; J45.909 Unspecified asthma, uncomplicated

== ENCOUNTER 2017-11-23 23:51 | Inpatient (IN) | payer MEDICAID, OTHER ==
--- NOTE | 2017-11-24 00:40 | C.PDOC ---
History Of Present Illness 47 year old male presents to the ED requesting detox from heroin and cocaine. Patient also reports having suicidal ideation, wants to jump in front of a car. Patient denies HI, hallucinations, CP, SOB, abdominal pain. Time Seen by Provider: 11/24/17 00:15 Chief Complaint (Nursing): Psychiatric Evaluation History Per: Patient History/Exam Limitations: no limitations Onset/Duration Of Symptoms: Days Current Symptoms Are (Timing): Still Present Suicide/Self Injury Attempted (Context): Other Modifying Factor(s): Cocaine, Other (Heroin) Associated Symptoms: Suicidal Thoughts, Suicidal Plan. denies: Depression Recent travel outside of the [place]: No Additional History Per: Patient Past Medical History Reviewed: Historical Data, Nursing Documentation, Vital Signs Vital Signs: Last Vital Signs Temp 98.3 F 11/23/17 23:58 Pulse 16 L 11/23/17 23:58 Resp 97 H 11/23/17 23:58 BP 169/103 H 11/23/17 23:58 Pulse Ox 88 L 11/24/17 00:53 - Medical History PMH: Asthma, COPD, Depression, HTN, Hypercholesterolemia Denies: Diabetes, Hepatitis, HIV, Chronic Kidney Disease, Seizures, Sexually Transmitted Disease Surgical History: No Surg Hx - [facility] DETOXIFICATION SERVICES FOR SUBSTANCE ABUSE TREATMENT (01/15/17) INDIV PSYCHOTHERAPY FOR SUBSTANCE ABUSE TREATMENT, SUPPORT (01/15/17) Family History: States: Unknown Family Hx - Social History Hx Tobacco Use: Yes Hx Alcohol Use: No Hx Substance Use: Yes - Immunization History Hx Tetanus Toxoid Vaccination: No Hx Influenza Vaccination: No Hx Pneumococcal Vaccination: No Review Of Systems Constitutional: Negative for: Fever, Chills Cardiovascular: Negative for: Chest Pain Respiratory: Negative for: Shortness of Breath Gastrointestinal: Negative for: Abdominal Pain Skin: Negative for: Rash Psych: Positive for: Suicidal ideation. Negative for: Depression Physical Exam - Physical Exam Appears: Non-toxic, Other (Bizarre affect) Skin: Normal Color, Warm, Dry Head: Atraumatic, Normacephalic Eye(s): bilateral: Normal Inspection Nose: No Discharge Oral Mucosa: Moist Neck: Normal ROM, Supple Chest: Symmetrical Cardiovascular: Rhythm Regular, No Murmur Respiratory: Normal Breath Sounds, No Rales, No Rhonchi Gastrointestinal/Abdominal: Soft, No Tenderness, No Guarding, No Rebound Extremity: Normal ROM, Tenderness (macerated feet consistent with moisture exposure, no superinfection) Neurological/Psych: Oriented x3 ED Course And Treatment - Laboratory Results Result Diagrams: 11/24/17 00:44 O2 Sat by Pulse Oximetry: 88 Medical Decision Making Medical Decision Making: Assessment: SI, drug abuse Plan: * Labs * UA * Crisis notified Disposition - Disposition Disposition Time: 00:55 Condition: STABLE Forms: [facility] (Azerbaijani) - Clinical Impression Clinical Impression: Drug abuse - Scribe Statement The provider has reviewed the documentation as recorded by the Scribe Chivo Zaragoza All medical record entries made by the Scribe were at my direction and personally dictated by me. I have reviewed the chart and agree that the record accurately reflects my personal performance of the history, physical exam, medical decision making, and the department course for this patient. I have also personally directed, reviewed, and agree with the discharge instructions and disposition. Physician Patient Turnover Patient Signed Over To: Santy Bess Handoff Comments: pending labs, crisis evaluation and disposition
[2017-11-24 00:43] LABS: BASO # 0.1 K/uL (0.0-0.2); EOS # 0.1 K/uL (0.0-0.7); EOS % 0.9 % (0.0-4.0); HEMOGLOBIN 13.1 g/dL (12.0-18.0); LYMPH # 2.2 K/uL (1.0-4.3); MEAN CELL VOLUME 91.5 fL (80.0-94.0); MEAN CORPUSCULAR HEMOGLOBIN 30.9 pg (27.0-31.0); MEAN CORPUSCULAR HGB CONC 33.8 g/dL (33.0-37.0); MEAN PLATELET VOLUME 6.2 fL (7.2-11.7); NEUT % 70.1 % (50.0-75.0); RBC 4.25 Mil/uL (4.40-5.90); RED CELL DISTRIBUTION WIDTH 14.3 % (11.5-14.5); WHITE BLOOD COUNT 11.4 K/uL (4.8-10.8)
[2017-11-24 00:53] LABS: ALB/GLOB RATIO 1.1 (1.0-2.1); ALBUMIN 4.2 g/dL (3.5-5.0); ALT/SGPT 17 U/L (21-72); AST/SGOT 34 U/L (17-59); BLOOD UREA NITROGEN 30 mg/dL (9-20); GFR AFRICAN-AMERICAN > 60; GFR NON-AFRICAN AMERICAN > 60
[2017-11-24 01:01] LABS: BARBITURATES, UR NEGATIVE (NEGATIVE); BENZODIAZEPINES, UR NEGATIVE (NEGATIVE); PHENCYCLIDINE, UR NEGATIVE (NEGATIVE)
[2017-11-24 01:03] LABS: SQUAMOUS EPITHIAL < 1 /hpf (0-5); URINE BILIRUBIN NEGATIVE (NEGATIVE); URINE BLOOD NEGATIVE (NEGATIVE); URINE CLARITY Clear (Clear); URINE COLOR Yellow (YELLOW); URINE GLUCOSE (UA) NORMAL (Normal); URINE LEUKOCYTE ESTERASE NEG Leu/uL (Negative); URINE PROTEIN 1+ mg/dL (NEGATIVE)
[2017-11-24 01:30] LABS: OPIATES, UR POSITIVE (NEGATIVE)
[2017-11-24] MEDS ORDERED: Aluminum Hydroxide/Magnesium Hydroxide Susp (30 mL) PO PRN (08:03)
--- NOTE | 2017-11-24 08:03 | PCM.PSYCH ---
Initial Psychiatric Evaluation - Initial Psychiatric Evaluation Type of Admission: Voluntary Legal Status: Capacity Chief Complaint (in patient's own words): I was depressed and suicidal.' History of Present Illness and Precipitating Events: Patient is a 47 year old single white male who came to the hospital with suicidal ideations with a plan to jump in front of a car. Patient reports a long history of depression and drug abuse. He has been admitted to inpatient psychiatric units multiple times. He was last discharged from [facility] last year. As per the patient, he relapsed on heroin, cocaine soon after discharge. He also reports that he started going to a methadone program but he was kicked out as he was also using cocaine. As per the patient he was dropped from 160 mg of methadone to 30 mg methadone. As a result he relapsed on heroin and started abusing 5-10 bags daily along with 3-4 bags of cocaine (crack) daily and 30 mg of methadone daily. Patient's last use of heroin, cociane and methodone was yesterday. Patient reports depressed mood , feelings of hopelessness and helplessness, poor sleep and poor appetite. He also reports withdrawal symptoms from heroin including nausea, vomiting, diarrhea, abdominal cramps and joint pains. Patient reports that he's having suicidal thoughts with a plan to jump in front of a car as he "lost his mother, is homeless and using drugs". Patient however denies any homicidal ideations and denies any auditory/visual hallucinations or any paranoia. Past medical history History of asthma, HTN Past Psychiatric History - Past Psychiatric History Previous Treatment History: Inpatient Pertinent Medical Hx (Current Medical&Sleep Prob, Allergies): Allergies Allergy/AdvReac Type Severity Reaction Status Date / Time No Known Allergies Allergy Verified 11/24/17 00:01 Albuterol HFA [Ventolin HFA 90 mcg/actuation (8 g)] 1 puff IH Q4H PRN #1 inhaler 12/04/16 Review of Systems - Review of Systems All systems: reviewed and no additional remarkable complaints except - Psychiatric Psychiatric: Anxiety, Irritability, Suicidal Ideation Mental Status Examination - Personal Presentation Personal Presentation: Looks stated age - Affect Affect: Constricted, Depressed - Motor Activity Motor Activity: Calm - Reliability in Providing Information Reliability in Providing Information: Fair - Speech Speech: Organized - Mood Mood: Depressed, Anxious - Formal Thought Process Formal Thought Process: No Impairment - Obsessions/Compulsions Obsessions: No Compulsions: No - Cognitive Functions Orientation: Person, Place, Situation, Time Sensorium: Alert Attention/Concentration: Attentive Abstract Thinking: [place] Estimate of Intelligence: Below average Judgement: Imparied, as evidence by: Poor judgement, Imparied, as evidence by: Lack of insight into illness - Risk Risk: Suicidal, Withdrawal, Diminished functioning - Limitations Limitations: Living alone DSM 5 DX - DSM 5 DSM 5 Diagnosis: Major depressive disorder recurrent severe without psychotic features Opioid use disorder severe Opioid withdrawal Cocaine use disorder severe - Recommended/Plan of Treatment Treatment Recommendations and Plan of Treatment: Major depressive disorder recurrent severe without psychotic features CBT Psychoeducation Supportive therapy, group therapy, individual therapy Zoloft 50 mg daily Trazodone 50 mg by mouth daily at bedtime Opioid use disorder severe CBT Psychoeducation Supportive therapy, individual therapy Use OK for abstinence Opioid withdrawal CBT Psychoeducation Supportive therapy, individual therapy Clonidine when necessary Methadone taper Cocaine use disorder severe CBT Psychoeducation Supportive therapy, individual therapy Use OK for abstinence - Smoking Cessation Smoking Cessation Initiated: No
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
--- NOTE | 2017-11-24 17:37 | RAD ---
HISTORY: Shortness of breath. COMPARISON: Comparison chest dated 01/15/2017 FINDINGS: LUNGS: No active pulmonary disease. PLEURA: No significant pleural effusion identified, no pneumothorax apparent. CARDIOVASCULAR: Normal. OSSEOUS STRUCTURES: No significant abnormalities. VISUALIZED UPPER ABDOMEN: Normal. OTHER FINDINGS: None. IMPRESSION: No acute cardiopulmonary disease.
[2017-11-24] MEDS: Dakin's Topical 0.25%-Half Strength (480 ml) TOP SCH (18:28)
[2017-11-24] MEDS: Vitamin A/D oint 60G TP SCH (18:52)
[2017-11-24] MEDS: Budesonide 0.25 mg/2 ml Inhal Susp UD INH SCH (19:08)
[2017-11-24] MEDS: Albuterol-Ipratrop 3 mg / 0.5 (3 ml) UD INH PRN (19:08)
[2017-11-25 07:07] LABS: BASO # 0.2 K/uL (0.0-0.2); BASO % 1.7 % (0.0-2.0); EOS % 0.1 % (0.0-4.0); HEMOGLOBIN 13.2 g/dL (12.0-18.0); LYMPH % 21.7 % (20.0-40.0); MEAN CELL VOLUME 90.6 fL (80.0-94.0); MEAN CORPUSCULAR HEMOGLOBIN 30.8 pg (27.0-31.0); MEAN PLATELET VOLUME 6.4 fL (7.2-11.7); MONO # 0.6 K/uL (0.0-0.8); MONO % 6.1 % (0.0-10.0); NEUT # 6.5 K/uL (1.8-7.0); NEUT % 70.4 % (50.0-75.0); RBC 4.28 Mil/uL (4.40-5.90); WHITE BLOOD COUNT 9.3 K/uL (4.8-10.8)
[2017-11-25 07:23] LABS: LDL CHOLESTEROL 108 mg/dL (0-129)
[2017-11-25 07:27] LABS: ALBUMIN 3.5 g/dL (3.5-5.0); ALT/SGPT 14 U/L (21-72); AST/SGOT 24 U/L (17-59); BLOOD UREA NITROGEN 29 mg/dL (9-20); CALCIUM 8.8 mg/dl (8.6-10.4); GFR AFRICAN-AMERICAN > 60; GFR NON-AFRICAN AMERICAN > 60; HDL CHOLESTEROL 42 mg/dL (30-70)
--- NOTE | 2017-11-25 12:45 | PCM.PYCHPN ---
Psychiatric Progress Note - Psychiatric Progress Note Patient seen today, length of contact: 15 min Patient Chief Complaint: I'm still withdrawing Problems Identified/Issues Discussed: Patient seen and evaluated, chart reviewed and discussed with the nurse. He reports depressed mood and feelings of hopelessness and helplessness. He still reports suicidal ideation without any plan. Patient remained isolated, confined and withdrawn. Patient reports withdrawal symptoms including nausea, headaches, cramps and sweating. Patient is compliant with medications and denies any side effects. Symptoms are improving but need more time to stabilize. Support and psychoeducation given. Medication Change: Yes (Methadone taper) Medical Record Reviewed: Yes Mental Status Examination - Cognitive Function Orientation: Person, Place, Situation, Time Memory: Intact Attention: WNL Concentration: Poor Association: WNL Fund of Knowledge: Poor - Mood Mood: Depressed, Anxious - Affect Affect: Constricted - Speech Speech: Soft - Formal Thought Process Formal Thought Process: No Impairment - Suicidal Ideation Suicidal Ideation: No - Homicidal Ideation Homicidal Ideation: No Goal/Treatment Plan - Goal/Treatment Plan Need for Continued Stay: Severe depression anxiety, Severe functional impairment Progress Toward Problem(s) and Goals/Treatment Plan: Major depressive disorder recurrent severe without psychotic features CBT Psychoeducation Supportive therapy, group therapy, individual therapy Zoloft 50 mg daily Trazodone 50 mg by mouth daily at bedtime Opioid use disorder severe CBT Psychoeducation Supportive therapy, individual therapy Use NV for abstinence Opioid withdrawal CBT Psychoeducation Supportive therapy, individual therapy Clonidine when necessary Methadone taper Cocaine use disorder severe CBT Psychoeducation Supportive therapy, individual therapy Use NV for abstinence - Smoking Cessation Smoking Cessation Initiated: No
--- NOTE | 2017-11-25 13:06 | CP.PCM.PN ---
<StaceyModesta - Last Filed: 11/25/17 13:22> Subjective - Date & Time of Evaluation Date of Evaluation: 11/25/17 Time of Evaluation: 13:08 - Subjective Subjective: Progress note for Dr. Andrade Patient seen and examined at bedside and at breakfast with attending. Patient is able to speak in full sentences, no distress. Patient calmly answers questions and a slight tremor is noted when moving his hands. Patient states he has no complaints except for some inner foot and toe pain when walking. Patient states he had wheezing yesterday and overnight but ventolin inhaler helps him. Patient states he denies fever, chills, diarrhea, constipation. Patient admits to productive cough with yellow sputum, wheezing overnight. Objective - Vital Signs/Intake and Output Vital Signs (last 24 hours): Temp Pulse Resp BP Pulse Ox 98.2 F 83 20 138/81 99 11/25/17 06:00 11/25/17 06:47 11/25/17 06:00 11/25/17 06:47 11/25/17 06:00 - Medications Medications: Current Medications Al Hydrox/Mg Hydrox/Simethicone (Maalox 30 Ml) 30 ml PO TID PRN PRN Reason: Indigestion / Heartburn Albuterol (Ventolin Hfa 90 Mcg/Actuation (8 G)) 1 puff IH Q4H PRN PRN Reason: Shortness of Breath Albuterol/Ipratropium (Duoneb 3 Mg/0.5 Mg (3 Ml) Ud) 3 ml INH RQ4 PRN PRN Reason: Wheezing Last Admin: 11/24/17 19:08 Dose: 3 ml Budesonide (Pulmicort Respules) 0.25 mg INH RQ12 [facility] Last Admin: 11/24/17 19:08 Dose: 0.25 mg Clonidine HCl (Catapres) 0.1 mg PO Q8 PRN PRN Reason: COWS Score More or Equal to 5 Last Admin: 11/25/17 05:49 Dose: 0.1 mg Gabapentin (Neurontin) 100 mg PO TID [facility] Last Admin: 11/25/17 09:10 Dose: 100 mg Hydroxyzine HCl (Atarax) 25 mg PO Q6 PRN PRN Reason: Anxiety Loperamide HCl (Imodium) 2 mg PO Q8 PRN PRN Reason: Diarrhea Methadone HCl (Methadone) 15 mg PO DAILY [facility] PRN Reason: Taper Stop: 11/28/17 09:59 Last Admin: 11/25/17 09:10 Dose: 15 mg Nicotine (Nicoderm Cq) 1 patch TD DAILY [facility] Ondansetron HCl (Zofran Tab) 4 mg PO Q8 PRN PRN Reason: Nausea/Vomiting Prednisone (Prednisone Tab) 20 mg PO DAILY [facility] Last Admin: 11/24/17 18:28 Dose: 20 mg Pseudoephedrine HCl (Sudafed Tab) 60 mg PO QID PRN PRN Reason: Nasal/Sinus Congestion Sodium Hypochlorite (Dakins Solution 0.25%) 0 ml TOP DAILY [facility] Last Admin: 11/24/17 18:28 Dose: 5 ml Trazodone HCl (Desyrel) 50 mg PO HS [facility] Last Admin: 11/24/17 21:20 Dose: 50 mg Vitamin A (Vitamin A&D) 1 applic TP DAILY [facility] Last Admin: 11/24/17 18:52 Dose: 1 applic - Labs Labs: 11/25/17 06:45 11/25/17 06:45 - Constitutional Appears: No Acute Distress - Head Exam Head Exam: ATRAUMATIC, NORMAL INSPECTION, NORMOCEPHALIC - Eye Exam Eye Exam: EOMI, Normal appearance - ENT Exam ENT Exam: Mucous Membranes Moist - Neck Exam Neck Exam: Full ROM. absent: Tenderness, Thyromegaly - Respiratory Exam Respiratory Exam: Wheezes, NORMAL BREATHING PATTERN. absent: Accessory Muscle Use, Chest Wall Tenderness, Respiratory Distress - Cardiovascular Exam Cardiovascular Exam: REGULAR RHYTHM, +S1, +S2. absent: Bradycardia, Tachycardia - GI/Abdominal Exam GI & Abdominal Exam: Soft, Normal Bowel Sounds. absent: Tenderness - Extremities Exam Extremities Exam: Full ROM. absent: Pedal Edema - Back Exam Back Exam: Full ROM, NORMAL INSPECTION. absent: paraspinal tenderness - Neurological Exam Neurological Exam: Alert, Awake, CN II-XII Intact, Oriented x3 - Psychiatric Exam Psychiatric exam: Normal Affect, Normal Mood - Skin Additional comments: skin on legs have ointment on them abrasions visible in diffuse areas of left and right leg and feet. Assessment and Plan - Assessment and Plan (Free Text) Assessment: (1) Asthma exacerbation Assessment and Plan: Duonebs Q4 PRN Budesonide 0.25 mg Q12 Prednisone 20 mg PO daily Cont to monitor CXR- No signs of active disease- suspected atelectasis in right lower lung vargas- Wait for official read. F/U Status: Acute (2) Foot pain, bilateral Assessment and Plan: Presentation likely complicated by frostbite and poor protection of feet during cold weather. F/U XRAY of the feet B/L Recommendations for warm water soaks, Dakin's topical solution , A and D ointment as well. To be seen by Podiatry F/U Podiatry recommendations Status: Acute (3) HTN (hypertension) Assessment and Plan: Clonidine 0.1 mg PO Q8H Continue to monitor Status: Chronic (4) Polysubstance (including opioids) dependence, daily use Assessment and Plan: Management per Psychiatry team Patient would benefit from counseling services Status: Chronic (5) Tobacco use Assessment and Plan: Nicotine patch 7 Q 24h Smoking cessation counseling Status: Chronic (6) Prophylactic measure Assessment and Plan: Ambulates at this time Status: Acute Discussed wit Dr. Lupe Ibarra, DO PGY1 <Harpreet Andrade - Last Filed: 11/25/17 14:06> Objective - Vital Signs/Intake and Output Vital Signs (last 24 hours): Temp Pulse Resp BP Pulse Ox 98.2 F 83 20 138/81 99 11/25/17 06:00 11/25/17 06:47 11/25/17 06:00 11/25/17 06:47 11/25/17 06:00 - Medications Medications: Current Medications Al Hydrox/Mg Hydrox/Simethicone (Maalox 30 Ml) 30 ml PO TID PRN PRN Reason: Indigestion / Heartburn Albuterol (Ventolin Hfa 90 Mcg/Actuation (8 G)) 1 puff IH Q4H PRN PRN Reason: Shortness of Breath Albuterol/Ipratropium (Duoneb 3 Mg/0.5 Mg (3 Ml) Ud) 3 ml INH RQ4 PRN PRN Reason: Wheezing Last Admin: 11/24/17 19:08 Dose: 3 ml Budesonide (Pulmicort Respules) 0.25 mg INH RQ12 [facility] Last Admin: 11/24/17 19:08 Dose: 0.25 mg Clonidine HCl (Catapres) 0.1 mg PO Q8 PRN PRN Reason: COWS Score More or Equal to 5 Last Admin: 11/25/17 05:49 Dose: 0.1 mg Gabapentin (Neurontin) 100 mg PO TID [facility] Last Admin: 11/25/17 13:41 Dose: 100 mg Hydroxyzine HCl (Atarax) 25 mg PO Q6 PRN PRN Reason: Anxiety Loperamide HCl (Imodium) 2 mg PO Q8 PRN PRN Reason: Diarrhea Methadone HCl (Methadone) 15 mg PO DAILY [facility] PRN Reason: Taper Stop: 11/28/17 09:59 Last Admin: 11/25/17 09:10 Dose: 15 mg Nicotine (Nicoderm Cq) 1 patch TD DAILY [facility] Nicotine (Nicoderm Cq) 1 patch TD DAILY [facility] Ondansetron HCl (Zofran Tab) 4 mg PO Q8 PRN PRN Reason: Nausea/Vomiting Prednisone (Prednisone Tab) 20 mg PO DAILY [facility] Last Admin: 11/25/17 13:41 Dose: 20 mg Pseudoephedrine HCl (Sudafed Tab) 60 mg PO QID PRN PRN Reason: Nasal/Sinus Congestion Sodium Hypochlorite (Dakins Solution 0.25%) 0 ml TOP DAILY [facility] Last Admin: 11/24/17 18:28 Dose: 5 ml Trazodone HCl (Desyrel) 50 mg PO HS [facility] Last Admin: 11/24/17 21:20 Dose: 50 mg Vitamin A (Vitamin A&D) 1 applic TP DAILY [facility] Last Admin: 11/25/17 13:43 Dose: 1 applic - Labs Labs: 11/25/17 06:45 11/25/17 06:45 Attending/Attestation - Attestation I have personally seen and examined this patient.: Yes I have fully participated in the care of the patient.: Yes I have reviewed all pertinent clinical information, including history, physical exam and plan: Yes Notes (Text): 11/25/17 14:02 Medical consult: Patient was seen and examined by me. Agree with the above note by the resident The patient was not in any acute distress when we saw him. His breathing was reported by him as being easier and not as wheezing as before. On exam he still has some mild bilateral wheezing. The patient will be continued on the PO prednisone, and then also the BID Pulmicort He has not yet had the foot xrays done. Pending podiatry consult. thank you Harpreet Andrade
[2017-11-25] MEDS: Vitamin A/D oint 60G TP SCH (13:43)
[2017-11-25] MEDS: Dakin's Topical 0.25%-Half Strength (480 ml) TOP SCH (14:56)
--- NOTE | 2017-11-25 18:06 | RAD ---
PROCEDURE: Bilateral Feet Radiographs. HISTORY: bilateral foot Family history of breast cancer: Aunt age at diagnosis: COMPARISON: None. FINDINGS: BONES: Right Foot: Normal. No fracture. Left Foot: Normal. No fracture. JOINTS: Right Foot: Normal. No osteoarthritis. Left Foot: Normal. No osteoarthritis. SOFT TISSUES: Right Foot: Normal. Left Foot: Normal. OTHER FINDINGS: None. IMPRESSION: Normal radiographs of the feet.
[2017-11-25] MEDS: Albuterol-Ipratrop 3 mg / 0.5 (3 ml) UD INH PRN (19:48)
[2017-11-25] MEDS: Budesonide 0.25 mg/2 ml Inhal Susp UD INH SCH (19:48)
[2017-11-25] MEDS: Albuterol HFA 90 mcg/actuation (8 g) IH PRN (19:55)
[2017-11-26] MEDS: Budesonide 0.25 mg/2 ml Inhal Susp UD INH SCH ×2 (08:18→20:42)
[2017-11-26] MEDS: Dakin's Topical 0.25%-Half Strength (480 ml) TOP SCH (09:51)
[2017-11-26] MEDS: Vitamin A/D oint 60G TP SCH (09:53)
--- NOTE | 2017-11-26 10:19 | PCM.PYCHPN ---
Psychiatric Progress Note - Psychiatric Progress Note Patient seen today, length of contact: 15 min Patient Chief Complaint: I am feeling depressed.' Problems Identified/Issues Discussed: Patient seen and evaluated, chart reviewed and discussed with the nurse. He still reports depressed mood and feelings of hopelessness and helplessness. He remained isolated, confined and withdrawn. He still reports withdrawal symptoms including nausea, headaches, cramps and sweating. He is compliant with medications and denies any side effects. Symptoms are improving but need more time to stabilize. Support and psychoeducation given. Medication Change: Yes (methadone taper, increase zoloft) Medical Record Reviewed: Yes Mental Status Examination - Cognitive Function Orientation: Person, Place, Situation, Time Memory: Intact Attention: WNL Concentration: Poor Association: WNL Fund of Knowledge: Poor - Mood Mood: Depressed, Anxious - Affect Affect: Constricted - Speech Speech: Soft - Formal Thought Process Formal Thought Process: No Impairment - Suicidal Ideation Suicidal Ideation: No - Homicidal Ideation Homicidal Ideation: No Goal/Treatment Plan - Goal/Treatment Plan Need for Continued Stay: Severe depression anxiety, Severe functional impairment Progress Toward Problem(s) and Goals/Treatment Plan: Major depressive disorder recurrent severe without psychotic features CBT Psychoeducation Supportive therapy, group therapy, individual therapy Zoloft 50 mg daily Trazodone 50 mg by mouth daily at bedtime Opioid use disorder severe CBT Psychoeducation Supportive therapy, individual therapy Use [place] for abstinence Opioid withdrawal CBT Psychoeducation Supportive therapy, individual therapy Clonidine when necessary Methadone taper Cocaine use disorder severe CBT Psychoeducation Supportive therapy, individual therapy Use [place] for abstinence - Smoking Cessation Smoking Cessation Initiated: No
--- NOTE | 2017-11-26 11:23 | CARD ---
APPROVED REPORT EKG Measurement Heart [id number] <Conclusion> Normal sinus rhythm Anterior infarct, age undetermined Abnormal ECG
--- NOTE | 2017-11-26 13:05 | CP.PCM.PN ---
<StaceyModesta - Last Filed: 11/26/17 13:07> Subjective - Date & Time of Evaluation Date of Evaluation: 11/26/17 Time of Evaluation: 13:03 - Subjective Subjective: Progress note for Dr. Andrade Patient seen and examined at bedside and at breakfast with attending. Patient is able to speak in full sentences, no distress. Patient states he's breathing better and ventolin is helping. Patient states he denies fever, chills, diarrhea , constipation. Patient admits to productive cough with yellow sputum, wheezing overnight. Objective - Vital Signs/Intake and Output Vital Signs (last 24 hours): Temp Pulse Resp BP Pulse Ox 97.6 F 78 18 165/87 H 82 L 11/26/17 07:48 11/26/17 07:48 11/26/17 07:48 11/26/17 09:00 11/26/17 09:00 - Medications Medications: Current Medications Al Hydrox/Mg Hydrox/Simethicone (Maalox 30 Ml) 30 ml PO TID PRN PRN Reason: Indigestion / Heartburn Albuterol (Ventolin Hfa 90 Mcg/Actuation (8 G)) 1 puff IH Q4H PRN PRN Reason: Shortness of Breath Last Admin: 11/25/17 19:55 Dose: 1 puff Budesonide (Pulmicort Respules) 0.25 mg INH RQ12 [facility] [place] Last Admin: 11/26/17 08:18 Dose: 0.25 mg Clonidine HCl (Catapres) 0.1 mg PO Q8 PRN PRN Reason: COWS Score More or Equal to 5 Last Admin: 11/26/17 07:26 Dose: 0.1 mg Gabapentin (Neurontin) 300 mg PO TID [facility] [place] Last Admin: 11/26/17 09:48 Dose: 300 mg Hydroxyzine HCl (Atarax) 25 mg PO Q6 PRN PRN Reason: Anxiety Last Admin: 11/26/17 04:16 Dose: 25 mg Ibuprofen (Motrin Tab) 600 mg PO Q6 PRN PRN Reason: Pain, moderate (4-7) Last Admin: 11/26/17 04:34 Dose: 600 mg Loperamide HCl (Imodium) 2 mg PO Q8 PRN PRN Reason: Diarrhea Methadone HCl (Methadone) 10 mg PO DAILY [facility] [place] PRN Reason: Taper Stop: 11/28/17 09:59 Last Admin: 11/26/17 09:48 Dose: 10 mg Nicotine (Nicoderm Cq) 1 patch TD DAILY [facility] [place] Last Admin: 11/26/17 09:48 Dose: 1 patch Ondansetron HCl (Zofran Tab) 4 mg PO Q8 PRN PRN Reason: Nausea/Vomiting Last Admin: 11/25/17 19:34 Dose: 4 mg Pseudoephedrine HCl (Sudafed Tab) 60 mg PO QID PRN PRN Reason: Nasal/Sinus Congestion Sertraline HCl (Zoloft) 50 mg PO DAILY [facility] [place] Last Admin: 11/26/17 09:52 Dose: 50 mg Sodium Hypochlorite (Dakins Solution 0.25%) 0 ml TOP DAILY [facility] [place] Last Admin: 11/26/17 09:51 Dose: 5 ml Trazodone HCl (Desyrel) 50 mg PO HS [facility] [place] Last Admin: 11/25/17 21:19 Dose: 50 mg Vitamin A (Vitamin A&D) 1 applic TP DAILY [facility] [place] Last Admin: 11/26/17 09:53 Dose: 1 applic - Labs Labs: 11/25/17 06:45 11/25/17 06:45 Assessment and Plan - Assessment and Plan (Free Text) Assessment: (1) Asthma exacerbation Assessment and Plan: Duonebs Q4 PRN Budesonide 0.25 mg Q12 Prednisone 20 mg PO daily Cont to monitor CXR- No signs of active disease- suspected atelectasis in right lower lung vargas- Wait for official read. F/U Status: Acute (2) Foot pain, bilateral Assessment and Plan: Presentation likely complicated by frostbite and poor protection of feet during cold weather. XRAY of feet 3 views: normal radiographs of feet Recommendations for warm water soaks, Dakin's topical solution , A and D ointment as well. To be seen by Podiatry F/U Podiatry recommendations Status: Acute (3) HTN (hypertension) Assessment and Plan: Clonidine 0.1 mg PO Q8H Continue to monitor Status: Chronic (4) Polysubstance (including opioids) dependence, daily use Assessment and Plan: Management per Psychiatry team Patient would benefit from counseling services Status: Chronic (5) Tobacco use Assessment and Plan: Nicotine patch 7 Q 24h Smoking cessation counseling Status: Chronic (6) Prophylactic measure Assessment and Plan: Ambulates at this time Status: Acute Discussed wit Dr. Lupe Ibarra, DO PGY1 no further medical management at this time. Podiatry consult still active. On discharge, patient may be sent home on albuterol inhaler to use BID as needed for SOB and prednisone 20mg POQD for 5 days. (prescriptions in physical chart for patient) <Harpreet Andrade H - Last Filed: 11/26/17 14:04> Objective - Vital Signs/Intake and Output Vital Signs (last 24 hours): Temp Pulse Resp BP Pulse Ox 97.6 F 78 18 165/87 H 82 L 11/26/17 07:48 11/26/17 07:48 11/26/17 07:48 11/26/17 09:00 11/26/17 09:00 - Medications Medications: Current Medications Al Hydrox/Mg Hydrox/Simethicone (Maalox 30 Ml) 30 ml PO TID PRN PRN Reason: Indigestion / Heartburn Albuterol (Ventolin Hfa 90 Mcg/Actuation (8 G)) 1 puff IH Q4H PRN PRN Reason: Shortness of Breath Last Admin: 11/25/17 19:55 Dose: 1 puff Budesonide (Pulmicort Respules) 0.25 mg INH RQ12 [facility] Last Admin: 11/26/17 08:18 Dose: 0.25 mg Clonidine HCl (Catapres) 0.1 mg PO Q8 PRN PRN Reason: COWS Score More or Equal to 5 Last Admin: 11/26/17 07:26 Dose: 0.1 mg Gabapentin (Neurontin) 300 mg PO TID [facility] Last Admin: 11/26/17 13:34 Dose: 300 mg Hydroxyzine HCl (Atarax) 25 mg PO Q6 PRN PRN Reason: Anxiety Last Admin: 11/26/17 04:16 Dose: 25 mg Ibuprofen (Motrin Tab) 600 mg PO Q6 PRN PRN Reason: Pain, moderate (4-7) Last Admin: 11/26/17 04:34 Dose: 600 mg Loperamide HCl (Imodium) 2 mg PO Q8 PRN PRN Reason: Diarrhea Methadone HCl (Methadone) 10 mg PO DAILY [facility] PRN Reason: Taper Stop: 11/28/17 09:59 Last Admin: 11/26/17 09:48 Dose: 10 mg Nicotine (Nicoderm Cq) 1 patch TD DAILY [facility] [place] Last Admin: 11/26/17 09:48 Dose: 1 patch Ondansetron HCl (Zofran Tab) 4 mg PO Q8 PRN PRN Reason: Nausea/Vomiting Last Admin: 11/25/17 19:34 Dose: 4 mg Pseudoephedrine HCl (Sudafed Tab) 60 mg PO QID PRN PRN Reason: Nasal/Sinus Congestion Sertraline HCl (Zoloft) 50 mg PO DAILY [facility] [place] Last Admin: 11/26/17 09:52 Dose: 50 mg Sodium Hypochlorite (Dakins Solution 0.25%) 0 ml TOP DAILY [facility] [place] Last Admin: 11/26/17 09:51 Dose: 5 ml Trazodone HCl (Desyrel) 50 mg PO HS [facility] [place] Last Admin: 11/25/17 21:19 Dose: 50 mg Vitamin A (Vitamin A&D) 1 applic TP DAILY [facility] [place] Last Admin: 11/26/17 09:53 Dose: 1 applic - Labs Labs: 11/25/17 06:45 11/25/17 06:45 Attending/Attestation - Attestation I have personally seen and examined this patient.: Yes I have fully participated in the care of the patient.: Yes I have reviewed all pertinent clinical information, including history, physical exam and plan: Yes Notes (Text): 11/26/17 14:04 Medical attending: Patient was seen and examined by me, agrees the above note by the medical device sales representative. The patient was not in any acute distress we saw him. He speaking in full sentences. He reported that his breathing was much improved. He reports that the pain in his legs are much less than before. And that he's able to move better now At this moment the patient should continue with the nebulizers as needed, with left a prescription in the chart for albuterol inhaler as well as a few more days of prednisone once the patient leaves from here. Harpreet Andrade
--- NOTE | 2017-11-26 16:19 | PCM.BM ---
<Tyler Guerra - Last Filed: 11/26/17 16:16> Treatment Plan Problems - Problems identified on initial assessmt Depression Date Initiated: 11/24/17 Time Initiated: 07:50 Assessment reference: NA Status: Active Substance abuse Date Initiated: 11/24/17 Time Initiated: 07:50 Assessment reference: NA Status: Active Treatment assets and liabiliti Patient Assests: cooperative, self-reliant, negotiates basic needs Patient Liabilities: live alone (Homeless), financial problems (Unemployed), poor support system (No family), dietary restrictions (Hypertension), substance abuse (Heroin, crack cocaine), medical problems - Milieu Protocol Maintain good personal hygiene: daily Encourage regular showers, every shift Remind patient to perform daily oral care, every shift Assist patient to perform ADL's Conduct patient checks and document Observation sheet: Q15 minutes (For safety) Maintain personal safety: every shift Educate patient to report safety concerns to staff, every shift Monitor environment for contraband/sharps Medication safety: Monitor for expected outcome, potential side effects: every shift, Assess barriers to learning: every shift, Assess readiness for medication education: every shift Milieu Narrative: Major depressive disorder recurrent severe without psychotic features CBT Psychoeducation Supportive therapy, group therapy, individual therapy Zoloft 50 mg daily Trazodone 50 mg by mouth daily at bedtime Opioid use disorder severe CBT Psychoeducation Supportive therapy, individual therapy Use [place] for abstinence Opioid withdrawal CBT Psychoeducation Supportive therapy, individual therapy Clonidine when necessary Methadone taper Cocaine use disorder severe CBT Psychoeducation Supportive therapy, individual therapy Use [place] for abstinence Discharge/Continuing Care - Treatment Team Participation Patient/Family/SO Statement: Major depressive disorder recurrent severe without psychotic features CBT Psychoeducation Supportive therapy, group therapy, individual therapy Zoloft 50 mg daily Trazodone 50 mg by mouth daily at bedtime Opioid use disorder severe CBT Psychoeducation Supportive therapy, individual therapy Use [place] for abstinence Opioid withdrawal CBT Psychoeducation Supportive therapy, individual therapy Clonidine when necessary Methadone taper Cocaine use disorder severe CBT Psychoeducation Supportive therapy, individual therapy Use [place] for abstinence <Samantha Casillas - Last Filed: 11/27/17 11:09> - Diagnosis (1) Depression Status: Acute Interventions: 11/27/17 11:09 * Assess/adjust medications daily and /or as needed * See patient on an individual basis 7x/week to assess symptoms of depression * Monitor for side effects & effectiveness of medications * <Symone Garcia - Last Filed: 11/27/17 17:58> Family Contact Family involvement: Patient does not wish Family/SO involvement Family contact: Patient declines to allow family contact at present - Goals for Treatment Patient goals for treatment: "I want to be referred to [facility] for substance abuse treatment." Discharge/Continuing Care - Education Needs Education Needs: Patient Medication, Patient Coping Skills, Patient Aftercare Safety Plan - Discharge Discharge Criteria: Normal sleep pattern, Ability to care for self, No longer exhibiting s/s of withdrawal, Reduction of target symptoms Discharge to:: Substance Abuse Rehab - Treatment Team Participation Discussed with Family/SO: No Was Patient/Family/SO present at Treatment Team Meeting: Yes
[2017-11-27] MEDS: Albuterol HFA 90 mcg/actuation (8 g) IH PRN (07:58)
--- NOTE | 2017-11-27 11:09 | PCM.PYCHPN ---
Psychiatric Progress Note - Psychiatric Progress Note Patient seen today, length of contact: 15 min Patient Chief Complaint: I'm still withdrawing Problems Identified/Issues Discussed: Patient seen and evaluated, chart reviewed and discussed with the nurse. He still reports depressed mood and he remained isolated, confined and withdrawn. He still reports withdrawal symptoms including nausea, headaches, cramps and sweating. He is compliant with medications and denies any side effects. Symptoms are improving but need more time to stabilize. Support and psychoeducation given. Medication Change: Yes (Methadone taper) Medical Record Reviewed: Yes Mental Status Examination - Cognitive Function Orientation: Person, Place, Situation, Time Memory: Intact Attention: WNL Concentration: Poor Association: WNL Fund of Knowledge: Poor - Mood Mood: Depressed, Anxious - Affect Affect: Constricted, Depressed - Speech Speech: Soft - Formal Thought Process Formal Thought Process: No Impairment - Suicidal Ideation Suicidal Ideation: No - Homicidal Ideation Homicidal Ideation: No Goal/Treatment Plan - Goal/Treatment Plan Need for Continued Stay: Severe depression anxiety, Severe functional impairment Progress Toward Problem(s) and Goals/Treatment Plan: Major depressive disorder recurrent severe without psychotic features CBT Psychoeducation Supportive therapy, group therapy, individual therapy Zoloft 100 mg daily Trazodone 100 mg by mouth daily at bedtime Seroquel 50 mg po QHS Opioid use disorder severe CBT Psychoeducation Supportive therapy, individual therapy Use [place] for abstinence Opioid withdrawal CBT Psychoeducation Supportive therapy, individual therapy Clonidine when necessary Methadone taper Cocaine use disorder severe CBT Psychoeducation Supportive therapy, individual therapy Use [place] for abstinence - Smoking Cessation Smoking Cessation Initiated: No
[2017-11-27] MEDS: Dakin's Topical 0.25%-Half Strength (480 ml) TOP SCH ×2 (12:05→14:26)
[2017-11-27] MEDS: Vitamin A/D oint 60G TP SCH ×2 (12:07→14:27)
[2017-11-27] MEDS: Budesonide 0.25 mg/2 ml Inhal Susp UD INH SCH (19:29)
[2017-11-28] MEDS: Dakin's Topical 0.25%-Half Strength (480 ml) TOP SCH ×2 (09:20→10:44)
[2017-11-28] MEDS: Vitamin A/D oint 60G TP SCH ×2 (09:21→10:45)
[2017-11-28] MEDS: Albuterol HFA 90 mcg/actuation (8 g) IH PRN (13:42)
--- NOTE | 2017-11-29 00:17 | PCM.PYCHPN ---
Psychiatric Progress Note - Psychiatric Progress Note Patient seen today, length of contact: 15 min Patient Chief Complaint: I'm feeling irritable.' Problems Identified/Issues Discussed: Patient seen and evaluated, chart reviewed and discussed with the nurse. He still reports depressed mood and he remained isolated, confined and withdrawn. He still reports withdrawal symptoms including nausea, headaches, cramps and sweating. He is compliant with medications and denies any side effects. Symptoms are improving but need more time to stabilize. Support and psychoeducation given. Medication Change: Yes (Methadone taper, increase zoloft) Medical Record Reviewed: Yes Mental Status Examination - Cognitive Function Orientation: Person, Place, Situation, Time Memory: Intact Attention: WNL Concentration: Poor Association: WNL Fund of Knowledge: Poor - Mood Mood: Depressed, Anxious - Affect Affect: Constricted, Depressed - Speech Speech: Soft - Formal Thought Process Formal Thought Process: No Impairment - Suicidal Ideation Suicidal Ideation: No - Homicidal Ideation Homicidal Ideation: No Goal/Treatment Plan - Goal/Treatment Plan Need for Continued Stay: Severe depression anxiety, Severe functional impairment Progress Toward Problem(s) and Goals/Treatment Plan: Major depressive disorder recurrent severe without psychotic features CBT Psychoeducation Supportive therapy, group therapy, individual therapy Zoloft 200 mg daily Trazodone 100 mg by mouth daily at bedtime Seroquel 100 mg PO QHS Neurontin 100 mg po tid Opioid use disorder severe CBT Psychoeducation Supportive therapy, individual therapy Use [place] for abstinence Opioid withdrawal CBT Psychoeducation Supportive therapy, individual therapy Clonidine when necessary Methadone taper Cocaine use disorder severe CBT Psychoeducation Supportive therapy, individual therapy Use [place] for abstinence - Smoking Cessation Smoking Cessation Initiated: No
[2017-11-29] MEDS: Dakin's Topical 0.25%-Half Strength (480 ml) TOP SCH (10:23)
[2017-11-29] MEDS: Vitamin A/D oint 60G TP SCH ×2 (10:24→15:01)
[2017-11-29] MEDS: Budesonide 0.25 mg/2 ml Inhal Susp UD INH SCH (10:24)
--- NOTE | 2017-11-29 23:49 | PCM.PYCHPN ---
Psychiatric Progress Note - Psychiatric Progress Note Patient seen today, length of contact: 15 min Patient Chief Complaint: I'm feeling irritable.' Problems Identified/Issues Discussed: Patient seen and evaluated, chart reviewed and discussed with the nurse. As per the staff, pt became increasingly irritable and agitated. He started yelling and cursing at the staff. He remained isolated, confined and withdrawn. He still reports withdrawal symptoms including cramps and sweating. He wants to go the rehab after discharge. He is compliant with medications and denies any side effects. Symptoms are improving but need more time to stabilize. Support and psychoeducation given. Medication Change: Yes (Methadone taper, reduce zoloft, increase nurotnin, increase seroquel) Medical Record Reviewed: Yes Mental Status Examination - Cognitive Function Orientation: Person, Place, Situation, Time Memory: Intact Attention: WNL Concentration: Poor Association: WNL Fund of Knowledge: Poor - Mood Mood: Depressed, Anxious - Affect Affect: Constricted, Depressed - Speech Speech: Soft - Formal Thought Process Formal Thought Process: No Impairment - Suicidal Ideation Suicidal Ideation: No - Homicidal Ideation Homicidal Ideation: No Goal/Treatment Plan - Goal/Treatment Plan Need for Continued Stay: Severe depression anxiety, Severe functional impairment Progress Toward Problem(s) and Goals/Treatment Plan: Major depressive disorder recurrent severe without psychotic features CBT Psychoeducation Supportive therapy, group therapy, individual therapy d/c Zoloft 200 mg daily Trazodone 100 mg by mouth daily at bedtime Seroquel 300 mg PO QHS Neurontin 400 mg po tid Opioid use disorder severe CBT Psychoeducation Supportive therapy, individual therapy Use [place] for abstinence Opioid withdrawal CBT Psychoeducation Supportive therapy, individual therapy Clonidine when necessary Methadone taper Cocaine use disorder severe CBT Psychoeducation Supportive therapy, individual therapy Use [place] for abstinence - Smoking Cessation Smoking Cessation Initiated: No
[2017-11-30 06:31] VITALS: O2SAT 96
[2017-11-30] MEDS: Dakin's Topical 0.25%-Half Strength (480 ml) TOP SCH (09:31)
[2017-11-30] MEDS: Vitamin A/D oint 60G TP SCH (09:32)
[2017-11-30] MEDS: Albuterol HFA 90 mcg/actuation (8 g) IH PRN (10:36)
--- NOTE | 2017-11-30 17:26 | PCM.PYCHPN ---
Psychiatric Progress Note - Psychiatric Progress Note Patient seen today, length of contact: 15 min Patient Chief Complaint: I need more methadone. Problems Identified/Issues Discussed: Patient seen, chart reviewed, case discussed with the staff. Issues related to illness and treatment were discussed with the patient and staff. Reported compliant with treatment with no adverse affects. Tolerating treatment very well. Patient reported feeling better but reporting chills and back ache, requesting repeatedly to get methadone 5 mg. Patient appeared calm and not in distress. Education provided about medications. His methadone detox was done 2 days ago. Patient was calm and cooperative at the time of evaluation. Patient is improving with treatment but needs more time. Aftercare discussed with the patient. At the time of evaluation, patient was awake alert oriented 3, no delusions, no auditory visual hallucinations, no suicidal ideations or homicidal ideations. Medical Problems: Asthma Diagnostic Results: Reviewed DSM 5 Symptoms Update: Improving with treatment Medication Change: No Medical Record Reviewed: Yes Consults ordered or reviewed: Reviewed Mental Status Examination - Cognitive Function Orientation: Person, Place, Situation, Time Memory: Intact Attention: WNL Concentration: WNL Association: [facility] Fund of Knowledge: [facility] Decription of patient's judgement and insights: Fair - Mood Mood: Anxious - Affect Affect: Other (Inappropriate appeared calm) - Speech Speech: Soft - Formal Thought Process Formal Thought Process: No Impairment Psychotic Thoughts and Behaviors: None - Suicidal Ideation Suicidal Ideation: No - Homicidal Ideation Homicidal Ideation: No Goal/Treatment Plan - Goal/Treatment Plan Need for Continued Stay: Remain at risks for inpatient hospitalization, Discharge may exacerbated symptoms, Severe functional impairment Progress Toward Problem(s) and Goals/Treatment Plan: Patient education Supportive therapy CBT for relapse prevention [place] for abstinence Continue treatment as before Patient will go to [facility] for follow-up care after discharge from the hospital. Estimated Date of D/C: 12/02/17 - Smoking Cessation Smoking Cessation Initiated: Yes
[2017-12-01] MEDS: Vitamin A/D oint 60G TP SCH (09:18)
[2017-12-01] MEDS: Dakin's Topical 0.25%-Half Strength (480 ml) TOP SCH (09:19)
--- NOTE | 2017-12-01 14:04 | PCM.PYCHPN ---
Psychiatric Progress Note - Psychiatric Progress Note Patient seen today, length of contact: 15 min Patient Chief Complaint: I'm feeling better. I need help for both of my index fingers. Problems Identified/Issues Discussed: Patient seen, chart reviewed, case discussed with the staff. Issues related to illness and treatment were discussed with the patient and staff. Reported compliant with treatment with no adverse affects. Tolerating treatment very well. Patient reported feeling better. Also requesting for abscesses in his index fingers of both hands. Puss comes from the wound on her index finger on right hand. Will call medicine. Patient was calm and cooperative at the time of evaluation. Patient is improving with treatment but needs more time. Aftercare discussed with the patient. At the time of evaluation, patient was awake alert oriented 3, no delusions, no auditory visual hallucinations, no suicidal ideations or homicidal ideations. Medical Problems: Asthma Diagnostic Results: Reviewed DSM 5 Symptoms Update: Improving with treatment Medication Change: No Medical Record Reviewed: Yes Consults ordered or reviewed: Reviewed Mental Status Examination - Cognitive Function Orientation: Person, Place, Situation, Time Memory: Intact Attention: WNL Concentration: WNL Association: [facility] Fund of Knowledge: [facility] Decription of patient's judgement and insights: Fair - Mood Mood: Anxious (Much less than before) - Affect Affect: Other (Inappropriate appeared calm) - Speech Speech: Appropriate - Formal Thought Process Formal Thought Process: No Impairment Psychotic Thoughts and Behaviors: None - Suicidal Ideation Suicidal Ideation: No - Homicidal Ideation Homicidal Ideation: No Goal/Treatment Plan - Goal/Treatment Plan Need for Continued Stay: Remain at risks for inpatient hospitalization, Discharge may exacerbated symptoms, Severe functional impairment Progress Toward Problem(s) and Goals/Treatment Plan: Patient education Supportive therapy CBT for relapse prevention [place] for abstinence Continue treatment as before Patient will go to [facility] for follow-up care after discharge from the hospital. Estimated Date of D/C: 12/02/17 - Smoking Cessation Smoking Cessation Initiated: Yes
--- NOTE | 2017-12-01 21:36 | CP.PCM.PN ---
<Nga Fregoso - Last Filed: 12/01/17 22:56> Subjective - Date & Time of Evaluation Date of Evaluation: 12/01/17 Time of Evaluation: 20:00 - Subjective Subjective: Patient reports to have purulent discharge coming out of his right index finger while showering earlier tonight. Patient is homeless and has been sleeping outside in the snow prior to hospitalization. Patient reports bilateral index fingers pain started 3 months ago and lost his right finger nail about 3 weeks ago. He initially had a cut on his right index finger which eventually cause his right index finger nail lost. Patient denies having fever, chills, headache , shortness of breath, chest pain, nausea, vomiting, or diarrhea. Objective - Vital Signs/Intake and Output Vital Signs (last 24 hours): Temp Pulse Resp BP Pulse Ox 97.9 F 98 H 17 133/81 96 12/01/17 06:12 12/01/17 16:16 12/01/17 16:16 12/01/17 16:16 11/30/17 06:30 - Medications Medications: Current Medications Al Hydrox/Mg Hydrox/Simethicone (Maalox 30 Ml) 30 ml PO TID PRN PRN Reason: Indigestion / Heartburn Albuterol (Ventolin Hfa 90 Mcg/Actuation (8 G)) 1 puff IH Q4H PRN PRN Reason: Shortness of Breath Last Admin: 11/30/17 10:36 Dose: 1 puff Budesonide (Pulmicort Respules) 0.25 mg INH RQ12 SHERRON Last Admin: 11/29/17 10:24 Dose: Not Given Chlorpromazine (Thorazine) 50 mg PO Q6 PRN PRN Reason: Agitation Last Admin: 11/30/17 10:44 Dose: 50 mg Clonidine HCl (Catapres) 0.1 mg PO Q8 PRN PRN Reason: COWS Score More or Equal to 5 Last Admin: 11/29/17 15:33 Dose: 0.1 mg Dicyclomine HCl (Bentyl) 10 mg PO Q6 PRN PRN Reason: Muscle spasm Last Admin: 12/01/17 10:54 Dose: 10 mg Diphenhydramine HCl (Benadryl) 50 mg PO Q8 PRN PRN Reason: Agitation Last Admin: 11/29/17 15:33 Dose: 50 mg Gabapentin (Neurontin) 400 mg PO TID [facility] Last Admin: 12/01/17 17:14 Dose: 400 mg Hydroxyzine HCl (Atarax) 25 mg PO Q6 PRN PRN Reason: Anxiety Last Admin: 11/29/17 07:55 Dose: 25 mg Ibuprofen (Motrin Tab) 600 mg PO Q6 PRN PRN Reason: Pain, moderate (4-7) Last Admin: 12/01/17 06:20 Dose: 600 mg Loperamide HCl (Imodium) 2 mg PO Q8 PRN PRN Reason: Diarrhea Nicotine (Nicoderm Cq) 1 patch TD DAILY [facility] Last Admin: 12/01/17 09:17 Dose: Not Given Ondansetron HCl (Zofran Tab) 4 mg PO Q8 PRN PRN Reason: Nausea/Vomiting Last Admin: 11/25/17 19:34 Dose: 4 mg Pseudoephedrine HCl (Sudafed Tab) 60 mg PO QID PRN PRN Reason: Nasal/Sinus Congestion Quetiapine Fumarate (Seroquel) 300 mg PO [facility] Last Admin: 11/30/17 21:00 Dose: 300 mg Sodium Hypochlorite (Dakins Solution 0.25%) 0 ml TOP DAILY [facility] Last Admin: 12/01/17 09:19 Dose: Not Given Trazodone HCl (Desyrel) 100 mg PO [facility] Last Admin: 11/30/17 21:00 Dose: 100 mg Vitamin A (Vitamin A&D) 1 applic TP DAILY [facility] Last Admin: 12/01/17 09:18 Dose: 1 applic - Labs Labs: 11/25/17 06:45 11/25/17 06:45 - Constitutional Appears: Non-toxic, No Acute Distress, Older Than Stated Age - Head Exam Head Exam: ATRAUMATIC, NORMOCEPHALIC - Eye Exam Eye Exam: EOMI - ENT Exam ENT Exam: Mucous Membranes Moist - Neck Exam Neck Exam: Full ROM - Respiratory Exam Respiratory Exam: Clear to Ausculation Bilateral, NORMAL BREATHING PATTERN. absent: Respiratory Distress - Cardiovascular Exam Cardiovascular Exam: REGULAR RHYTHM, +S1, +S2. absent: Murmur - GI/Abdominal Exam GI & Abdominal Exam: Soft, Normal Bowel Sounds - Extremities Exam Extremities Exam: absent: Pedal Edema Additional comments: Full range of motion on bilateral hands and fingers, sensation intact right index finger swelling with slight erythema, tenderness, fingernail absent , black eschar without active drainage, unable to express purulent discharge left index finger tenderness, fingernail present with dried blood under - Neurological Exam Neurological Exam: Alert, Awake, Oriented x3 - Psychiatric Exam Psychiatric exam: Normal Affect, Normal Mood - Skin Skin Exam: Dry, Warm Assessment and Plan - Assessment and Plan (Free Text) Assessment: Bilateral index finger pain -Likely complicated by frostbite and poor hygiene -f/u CT UE finger to r/o abscess -Better hygiene practice advised -Motrin for pain and swelling -Outpatient antibiotics depending on CT results Asthma -Stable -Albuterol Q4 prn -Budesonide 0.25 mg Q12 Foot pain, bilateral -Presentation likely complicated by frostbite and poor protection of feet during cold weather. -XRAY of feet 3 views: normal radiographs of feet -Recommendations for warm water soaks, Dakin's topical solution , A and D ointment as well. -F/U Podiatry recommendations -F/u B12, BMP, Mg HTN (hypertension) -Clonidine 0.1 mg PO Q8H -Continue to monitor Polysubstance (including opioids) dependence, daily use -Management per Psychiatry team -Patient would benefit from counseling services Tobacco use -Nicotine patch 7 Q 24h -Smoking cessation counseling Prophylactic measure -Ambulates at this time <Gopi Ruiz P - Last Filed: 12/02/17 08:00> Objective - Vital Signs/Intake and Output Vital Signs (last 24 hours): Temp Pulse Resp BP Pulse Ox 98.1 F 91 H 20 147/87 96 12/02/17 06:23 12/02/17 06:23 12/02/17 06:23 12/02/17 06:23 11/30/17 06:30 - Medications Medications: Current Medications Al Hydrox/Mg Hydrox/Simethicone (Maalox 30 Ml) 30 ml PO TID PRN PRN Reason: Indigestion / Heartburn Albuterol (Ventolin Hfa 90 Mcg/Actuation (8 G)) 1 puff IH Q4H PRN PRN Reason: Shortness of Breath Last Admin: 11/30/17 10:36 Dose: 1 puff Budesonide (Pulmicort Respules) 0.25 mg INH RQ12 [place] Last Admin: 11/29/17 10:24 Dose: Not Given Chlorpromazine (Thorazine) 50 mg PO Q6 PRN PRN Reason: Agitation Last Admin: 11/30/17 10:44 Dose: 50 mg Clonidine HCl (Catapres) 0.1 mg PO Q8 PRN PRN Reason: COWS Score More or Equal to 5 Last Admin: 11/29/17 15:33 Dose: 0.1 mg Dicyclomine HCl (Bentyl) 10 mg PO Q6 PRN PRN Reason: Muscle spasm Last Admin: 12/01/17 10:54 Dose: 10 mg Diphenhydramine HCl (Benadryl) 50 mg PO Q8 PRN PRN Reason: Agitation Last Admin: 11/29/17 15:33 Dose: 50 mg Gabapentin (Neurontin) 400 mg PO TID [facility] Last Admin: 12/01/17 17:14 Dose: 400 mg Hydroxyzine HCl (Atarax) 25 mg PO Q6 PRN PRN Reason: Anxiety Last Admin: 11/29/17 07:55 Dose: 25 mg Ibuprofen (Motrin Tab) 600 mg PO Q6 PRN PRN Reason: Pain, moderate (4-7) Last Admin: 12/01/17 22:16 Dose: 600 mg Loperamide HCl (Imodium) 2 mg PO Q8 PRN PRN Reason: Diarrhea Multivitamins (Hexavitamin) 1 tab PO DAILY [facility] Nicotine (Nicoderm Cq) 1 patch TD DAILY [facility] Last Admin: 12/01/17 09:17 Dose: Not Given Ondansetron HCl (Zofran Tab) 4 mg PO Q8 PRN PRN Reason: Nausea/Vomiting Last Admin: 11/25/17 19:34 Dose: 4 mg Pseudoephedrine HCl (Sudafed Tab) 60 mg PO QID PRN PRN Reason: Nasal/Sinus Congestion Quetiapine Fumarate (Seroquel) 300 mg PO HS [facility] Last Admin: 12/01/17 22:13 Dose: 300 mg Sodium Hypochlorite (Dakins Solution 0.25%) 0 ml TOP DAILY [facility] Last Admin: 12/01/17 09:19 Dose: Not Given Trazodone HCl (Desyrel) 100 mg PO HS [facility] Last Admin: 12/01/17 22:13 Dose: 100 mg Vitamin A (Vitamin A&D) 1 applic TP DAILY [facility] Last Admin: 12/01/17 09:18 Dose: 1 applic - Labs Labs: 11/25/17 06:45 12/01/17 23:00 Attending/Attestation - Attestation I have personally seen and examined this patient.: Yes I have fully participated in the care of the patient.: Yes I have reviewed all pertinent clinical information, including history, physical exam and plan: Yes Notes (Text): Chronic right distal index finger swelling and ozzing, no abscess, osteonecrolysis noticed on CT, DD of osteomylitis, the diagnosis could be confirmed by MRI of the hand without contrast, vs patient to see a Hand surgeon , we recommend as patient is not septic, abx should be avoided until evaluated by hand surgeon if recommend biopsy, which should not happen with partial abx treatment. Since patient has plan to be going to [facility], may be able to find hand surgeon or get MRI, if stays here longer then primary service could help arranging MRI/hand surgery.
[2017-12-01 23:19] LABS: BLOOD UREA NITROGEN 41 mg/dL (9-20); GFR AFRICAN-AMERICAN > 60; GFR NON-AFRICAN AMERICAN > 60
--- NOTE | 2017-12-02 00:23 | CT ---
EXAM: CT Right Upper Extremity Without Intravenous Contrast, Hand EXAM DATE/TIME: 12/01/2017 9:43 PM CLINICAL HISTORY: 47 years old, male; Pain; Finger(s); Right; Additional info: Bilateral index fingers pain, R/O abscess TECHNIQUE: Axial computed tomography images of the right hand without intravenous contrast. All CT scans at this facility use one or more dose reduction techniques, viz.: automated exposure control; ma/kV adjustment per patient size (including targeted exams where dose is matched to indication; i.e. head); or iterative reconstruction technique. Coronal and sagittal reformatted images were created and reviewed. COMPARISON: No relevant prior studies available. FINDINGS: BONES/JOINTS: Absence of the tuft of the second distal phalanx. A few tiny bony fragments are less, but the remainder of the tuft is absent. 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 Tiny, well-corticated, round lucencies are seen in the proximal carpal bones, most likely representing degenerative subchondral cysts. Remaining visualized bony structures appear intact. No acute fractures are seen. No evidence of acute dislocation. Joint spaces are preserved. SOFT TISSUES: Soft tissue swelling in the distal second finger. No evidence of soft tissue hematoma. No evidence of soft tissue gas. No evidence of focal soft tissue fluid collection/abscess. 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 This finding can be seen in the setting of an underlying bone tumor, such as an epidermal inclusion cyst or glomus tumor, and also in the setting of osteomyelitis. - See above for remaining findings.
[2017-12-02 06:24] VITALS: BP 147/87; PULSE 91; RESP 20; TEMP 98.1
[2017-12-02] MEDS: Dakin's Topical 0.25%-Half Strength (480 ml) TOP SCH (09:10)
[2017-12-02] MEDS: Vitamin A/D oint 60G TP SCH (09:10)
[2017-12-02] MEDS ORDERED: Multiple Vitamins Tab PO SCH (10:00)
--- NOTE | 2017-12-02 10:08 | PCM.PYCHDC ---
Mental Status Examination - Mental Status Examination Orientation: Person, Place, Situation, Time Memory: Intact Mood: Neutral Affect: Constricted Speech: Soft Attention: WNL Concentration: WNL Association: WNL Fund of Knowledge: WNL Formal Thought Process: No Impairment Description of patient's judgement and insight: good, fair Psychotic Thoughts and Behaviors: denies any AVH Suicidal Ideation: No Current Homicidal Ideation?: No Discharge Summary - Discharge Note Reason for Hospitalization: Patient is a 47 year old single white male who came to the hospital with suicidal ideations with a plan to jump in front of a car. Patient reports a long history of depression and drug abuse. He has been admitted to inpatient psychiatric units multiple times. He was last discharged from [facility] last year. As per the patient, he relapsed on heroin, cocaine soon after discharge. He also reports that he started going to a methadone program but he was kicked out as he was also using cocaine. As per the patient he was dropped from 160 mg of methadone to 30 mg methadone. As a result he relapsed on heroin and started abusing 5-10 bags daily along with 3-4 bags of cocaine (crack) daily and 30 mg of methadone daily. Patient's last use of heroin, cociane and methodone was yesterday. Patient reports depressed mood , feelings of hopelessness and helplessness, poor sleep and poor appetite. He also reports withdrawal symptoms from heroin including nausea, vomiting, diarrhea, abdominal cramps and joint pains. Patient reports that he's having suicidal thoughts with a plan to jump in front of a car as he "lost his mother, is homeless and using drugs". Patient however denies any homicidal ideations and denies any auditory/visual hallucinations or any paranoia. Laboratory Data: Abnormal Lab Results 12/01/17 23:00 Sodium 139 Potassium 4.4 Chloride 99 Carbon Dioxide 27 Anion Gap 18 BUN 41 H Creatinine 1.2 Est GFR ( Amer) > 60 Est GFR (Non-Af Amer) > 60 Random Glucose 140 H Calcium 9.0 Magnesium 1.9 Vitamin B12 608 Consultations:: List each consultation separately and include: 1. Reason for request. 2. Findings. 3. Follow-up Summary of Hospital Course include:: 1. Description of specific treatment plan utilized for patients during their course of treatmen. 2. Summarize the time- course for resolution of acute symptoms and/or regressed behaviors. 3. Describe issues identified and worked on during hospitalization. 4. Describe medication utilized. 5. Describe medical problems identified and treated. 6. Reassessment of suicide risk Summary of Hospital Course: Patient is a 47 year old single white male who came to the hospital with suicidal ideations with a plan to jump in front of a car. Patient reports a long history of depression and drug abuse. He has been admitted to inpatient psychiatric units multiple times. He was last discharged from [facility] last year. As per the patient, he relapsed on heroin, cocaine soon after discharge. He also reports that he started going to a methadone program but he was kicked out as he was also using cocaine. As per the patient he was dropped from 160 mg of methadone to 30 mg methadone. As a result he relapsed on heroin and started abusing 5-10 bags daily along with 3-4 bags of cocaine (crack) daily and 30 mg of methadone daily. Patient's last use of heroin, cociane and methodone was yesterday. Patient reports depressed mood , feelings of hopelessness and helplessness, poor sleep and poor appetite. He also reports withdrawal symptoms from heroin including nausea, vomiting, diarrhea, abdominal cramps and joint pains. Patient reports that he's having suicidal thoughts with a plan to jump in front of a car as he "lost his mother, is homeless and using drugs". Patient however denies any homicidal ideations and denies any auditory/visual hallucinations or any paranoia. Past medical history History of asthma, HTN - Diagnosis (1) Depression Current Visit: Yes Status: Acute - Final Diagnosis (DSM 5) Condition upon Discharge: FAIR DSM 5: Major depressive disorder recurrent severe without psychotic features Opioid use disorder severe Opioid withdrawal Cocaine use disorder severe Disposition: HOME/ ROUTINE Follow-up Treatment Plan: Major depressive disorder recurrent severe without psychotic features CBT Psychoeducation Supportive therapy, group therapy, individual therapy d/c Zoloft 200 mg daily Trazodone 100 mg by mouth daily at bedtime Seroquel 300 mg PO QHS Neurontin 400 mg po tid Opioid use disorder severe CBT Psychoeducation Supportive therapy, individual therapy Use [place] for abstinence Opioid withdrawal CBT Psychoeducation Supportive therapy, individual therapy Clonidine when necessary Methadone taper Cocaine use disorder severe CBT Psychoeducation Supportive therapy, individual therapy Use [place] for abstinence Prescriptions/Medication Reconciliation: Albuterol HFA [Ventolin HFA 90 mcg/actuation (8 g)] 1 puff IH BID #1 inhaler Gabapentin [Neurontin] 400 mg PO TID #90 cap Prednisone [Deltasone] 20 mg PO DAILY #5 tablet traZODone [Desyrel] 100 mg PO HS #30 tab - Smoking Cessation Smoking Cessation Medication prescribed: No - Antipsychotic Medications Pt discharged on 2 or more routine antipsychotic medications: No
--- NOTE | 2017-12-02 15:32 | CP.PCM.PN ---
Subjective - Date & Time of Evaluation Date of Evaluation: 12/02/17 Time of Evaluation: 08:30 - Subjective Subjective: Patient seen and examined at bedside. No acute events overnight. Patient resting comfortably in a chair with no new complaints at this time. Patient says he needs to leave for the [employer] today where he will be working. Patient says he is having some numbness in his toes and fingers since waking up in the snow one morning while he was homeless. Patient denies fevers and chills. He thinks he has had some drainage from his index finger however, this is not seen on exam. Patient denies chest pain, SOB, palpitations, abdominal pain, n/v/d/c, calf pain, and lower extremity swelling. Objective - Vital Signs/Intake and Output Vital Signs (last 24 hours): Temp Pulse Resp BP Pulse Ox 98.1 F 91 H 20 147/87 96 12/02/17 06:23 12/02/17 06:23 12/02/17 06:23 12/02/17 06:23 11/30/17 06:30 - Labs Labs: 11/25/17 06:45 12/01/17 23:00 - Constitutional Appears: Well - Head Exam Head Exam: ATRAUMATIC, NORMAL INSPECTION, NORMOCEPHALIC - Eye Exam Eye Exam: EOMI, Normal appearance, PERRL Pupil Exam: NORMAL ACCOMODATION, PERRL - ENT Exam ENT Exam: Mucous Membranes Moist, Normal Exam - Neck Exam Neck Exam: Full ROM, Normal Inspection. absent: Lymphadenopathy - Respiratory Exam Respiratory Exam: Clear to Ausculation Bilateral, NORMAL BREATHING PATTERN - Cardiovascular Exam Cardiovascular Exam: REGULAR RHYTHM, +S1, +S2. absent: Murmur - GI/Abdominal Exam GI & Abdominal Exam: Soft, Normal Bowel Sounds. absent: Tenderness - Extremities Exam Extremities Exam: Full ROM, Normal Capillary Refill. absent: Joint Swelling, Pedal Edema, Tenderness Additional comments: Ulceration of right fingertip without prurulent discharge - Back Exam Back Exam: NORMAL INSPECTION - Neurological Exam Neurological Exam: Alert, Awake, Normal Gait, Oriented x3 - Psychiatric Exam Psychiatric exam: Normal Affect, Normal Mood - Skin Skin Exam: Dry, Intact, Normal Color, Warm Assessment and Plan - Assessment and Plan (Free Text) Plan: Bilateral index finger pain -Likely complicated by frostbite and poor hygiene -CT UE finger: acro-osteolysis (possible indication for bone tumor or osteomyelitits) -Better hygiene practice advised -will give bactrim to take as outpatient for 2 weeks since patient needs to leave Asthma -Stable -Albuterol Q4 prn -Budesonide 0.25 mg Q12 HTN (hypertension) -Clonidine 0.1 mg PO Q8H -Continue to monitor Polysubstance (including opioids) dependence, daily use -Management per Psychiatry team -Patient would benefit from counseling services Tobacco use -Nicotine patch 7 Q 24h -Smoking cessation counseling
== END 2017-12-02 11:15 | disposition home or self-care (01) | DRG 885 ==
LOC: C.ER 23:51 → C.9E 11-24 01:32 → C.5E 11-24 07:27
PROC: HZ2ZZZZ Detoxification Services for Substance Abuse Treatment (ICD-10-PCS; principal; 2017-11-24)
PROC: GZHZZZZ Group Psychotherapy (ICD-10-PCS; 2017-11-24)
DX: F33.2 Major depressive disorder, recurrent severe without psychotic features (principal); J45.901 Unspecified asthma with (acute) exacerbation; R45.851 Suicidal ideations; F11.23 Opioid dependence with withdrawal; F17.200 Nicotine dependence, unspecified, uncomplicated; I10 Essential (primary) hypertension; J44.9 Chronic obstructive pulmonary disease, unspecified; Z59.0 Homelessness; F14.10 Cocaine abuse, uncomplicated; X31.XXXA Exposure to excessive natural cold, initial encounter

== ENCOUNTER 2018-07-14 00:31 | Inpatient (IN) | payer MEDICAID ==
--- NOTE | 2018-07-14 01:10 | C.PDOC ---
History Of Present Illness 48 year old male presents to the ED for psychiatric evaluation of suicidal ideation. Patient states he wants to set himself on fire. He denies homicidal ideation. Time Seen by Provider: 07/14/18 00:55 Chief Complaint (Nursing): Psychiatric Evaluation History Per: Patient History/Exam Limitations: no limitations Onset/Duration Of Symptoms: Hrs Current Symptoms Are (Timing): Still Present Suicide/Self Injury Attempted (Context): None Associated Symptoms: Suicidal Thoughts, Suicidal Plan Involuntary Hold By: None Additional History Per: Patient Past Medical History Reviewed: Historical Data, Nursing Documentation, Vital Signs Vital Signs: Last Vital Signs Temp 98.5 F 07/14/18 00:42 Pulse 75 07/14/18 00:42 Resp 20 07/14/18 00:42 BP 149/76 07/14/18 00:42 Pulse Ox 95 07/14/18 00:42 - Medical History PMH: Asthma, COPD, Depression, HTN, Hypercholesterolemia Denies: Diabetes, Hepatitis, HIV, Chronic Kidney Disease, Seizures, Sexually Transmitted Disease Surgical History: No Surg Hx - [facility] Procedures DETOXIFICATION SERVICES FOR SUBSTANCE ABUSE TREATMENT (11/24/17) GROUP PSYCHOTHERAPY (12/24/17) INDIV PSYCHOTHERAPY FOR SUBSTANCE ABUSE TREATMENT, SUPPORT (01/15/17) Family History: States: Unknown Family Hx - Social History Hx Tobacco Use: Yes Hx Alcohol Use: No Hx Substance Use: Yes - Immunization History Hx Tetanus Toxoid Vaccination: No Hx Influenza Vaccination: No Hx Pneumococcal Vaccination: No Review Of Systems Psych: Positive for: Suicidal ideation. Negative for: Other (homicidal ideation ) Physical Exam - Physical Exam Appears: Non-toxic, No Acute Distress Skin: Normal Color, Warm, Dry Head: Atraumatic, Normacephalic Eye(s): bilateral: Normal Inspection Extremity: Normal ROM Neurological/Psych: Oriented x3, Normal Speech, Normal Cognition ED Course And Treatment - Laboratory Results Result Diagrams: 07/14/18 01:25 07/14/18 01:25 O2 Sat by Pulse Oximetry: 95 (on RA) Pulse Ox Interpretation: Normal Medical Decision Making Medical Decision Making: Progress: Bloodwork and urinalysis ordered and reviewed. Patient has been medically cleared. 0158: Case discussed with box storage worker. States that patient has been accepted by Dr. Bishop for cocaine and opioid abuse. Disposition - Disposition Disposition: HOSPITALIZED Condition: GOOD - Scribe Statement The provider has reviewed the documentation as recorded by the Scribe (Shweta Mera) Provider Attestation: All medical record entries made by the Scribe were at my direction and personally dictated by me. I have reviewed the chart and agree that the record accurately reflects my personal performance of the history, physical exam, medical decision making, and the department course for this patient. I have also personally directed, reviewed, and agree with the discharge instructions and disposition.
[2018-07-14 01:29] LABS: BASO # 0.1 K/uL (0.0-0.2); BASO % 1.1 % (0.0-2.0); EOS # 0.2 K/uL (0.0-0.7); EOS % 3.2 % (0.0-4.0); HEMOGLOBIN 12.1 g/dL (12.0-18.0); LYMPH # 1.3 K/uL (1.0-4.3); LYMPH % 20.9 % (20.0-40.0); MEAN CORPUSCULAR HEMOGLOBIN 30.5 pg (27.0-31.0); MEAN CORPUSCULAR HGB CONC 33.6 g/dL (33.0-37.0); MEAN PLATELET VOLUME 6.6 fL (7.2-11.7); MONO # 0.7 K/uL (0.0-0.8); MONO % 10.5 % (0.0-10.0); NEUT # 4.1 K/uL (1.8-7.0); NEUT % 64.3 % (50.0-75.0); NRBC % 0.1 % (0.0-2.0); RBC 3.96 Mil/uL (4.40-5.90); RED CELL DISTRIBUTION WIDTH 14.9 % (11.5-14.5); WHITE BLOOD COUNT 6.4 K/uL (4.8-10.8)
[2018-07-14 01:31] LABS: URINE BILIRUBIN NEGATIVE (NEGATIVE); URINE BLOOD NEGATIVE (NEGATIVE); URINE CLARITY Clear (Clear); URINE COLOR Yellow (YELLOW); URINE GLUCOSE (UA) NORMAL (Normal); URINE LEUKOCYTE ESTERASE NEG Leu/uL (Negative); URINE PROTEIN 1+ mg/dL (NEGATIVE)
[2018-07-14 01:43] LABS: ALB/GLOB RATIO 1.3 (1.0-2.1); ALBUMIN 3.9 g/dL (3.5-5.0); ALT/SGPT 45 U/L (21-72); AST/SGOT 32 U/L (17-59); BLOOD UREA NITROGEN 27 mg/dL (9-20); CALCIUM 8.4 mg/dl (8.6-10.4); GFR NON-AFRICAN AMERICAN 46
[2018-07-14 01:45] LABS: BARBITURATES, UR NEGATIVE (NEGATIVE); BENZODIAZEPINES, UR NEGATIVE (NEGATIVE); PHENCYCLIDINE, UR NEGATIVE (NEGATIVE)
[2018-07-14 01:48] LABS: OPIATES, UR POSITIVE (NEGATIVE)
[2018-07-14 02:59] VITALS: O2SAT 95
--- NOTE | 2018-07-14 03:46 | PCM.BM ---
<Celestino Cabrera - Last Filed: 07/14/18 03:43> Treatment Plan Problems - Problems identified on initial assessmt DEPRESSION Date Initiated: 07/14/18 Time Initiated: 03:00 Assessment reference: NA Status: Active SUBSTANCE ABUSE Date Initiated: 07/14/18 Time Initiated: 03:00 Assessment reference: NA Status: Active Treatment assets and liabiliti Patient Assests: cooperative, self-reliant, ADL independent, negotiates basic needs Patient Liabilities: live alone, financial problems, poor support system, relationship conflicts, dietary restrictions, substance abuse, medical problems - Milieu Protocol Maintain good personal hygiene: daily Encourage regular showers, daily Remind patient to perform daily oral care, daily Assist patient to perform ADL's Maintain personal safety: every shift Educate patient to report safety concerns to staff, every shift Monitor environment for contraband/sharps Medication safety: Monitor for expected outcome, potential side effects: every shift, Assess barriers to learning: every shift, Assess readiness for medication education: every shift <Symone Garcia - Last Filed: 07/14/18 14:55> Family Contact Family involvement: Patient does not wish Family/SO involvement Family contact: Patient declines to allow family contact at present - Goals for Treatment Patient goals for treatment: "I want to go to [facility] rehab." Discharge/Continuing Care - Education Needs Education Needs: Patient Medication, Patient Diagnosis/Disease Process, Patient Coping Skills, Patient Anger Management skills, Patient Placement options, Patient Community resources - Discharge Discharge Criteria: Free of Suicidal thoughts, Free of agitation, Normal sleep pattern, Ability to care for self, No longer exhibiting s/s of withdrawal, Reduction of target symptoms Discharge to:: Substance Abuse Rehab - Treatment Team Participation Discussed with Family/SO: No Was Patient/Family/SO present at Treatment Team Meeting: Yes
[2018-07-14] MEDS ORDERED: Albuterol HFA 90 mcg/actuation (8 g) INH PRN (16:58)
[2018-07-14] MEDS ORDERED: Aluminum Hydroxide/Magnesium Hydroxide Susp (30 mL) PO PRN (18:54)
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
--- NOTE | 2018-07-15 18:41 | PCM.PYCHPN ---
Psychiatric Progress Note - Psychiatric Progress Note Patient seen today, length of contact: 15 minutes Patient Chief Complaint: I'm not feeling better. I still have some withdrawal symptoms. Problems Identified/Issues Discussed: Patient seen, chart reviewed, case discussed with the staff. Issues related to illness and treatment were discussed with the patient and staff. Reported compliant with treatment with no adverse effects. Tolerating treatment very well. Patient reported not feeling well as he still have some withdrawal symptoms including abdominal cramps, nausea, sweating and body aches. Awake, alert and oriented x3. Calm and partially cooperative. Mood reported as depressed. Affect appropriate. Treatment discussed with the patient. Needs more time for stabilization. Aftercare discussed with the patient. Denied any delusions, auditory or visual hallucinations, suicidal ideations or homicidal ideations at the time of evaluation. Medical Problems: Hypertension Hypercholesterinemia Asthma COPD Diagnostic Results: Reviewed Medication Change: No Medical Record Reviewed: Yes Mental Status Examination - Cognitive Function Orientation: Person, Place, Situation, Time Memory: Intact Attention: WNL Concentration: WNL Association: [facility] Fund of Knowledge: [facility] Decription of patient's judgement and insights: Fair - Mood Mood: Depressed - Affect Affect: Depressed - Speech Speech: Appropriate - Formal Thought Process Formal Thought Process: No Impairment Psychotic Thoughts and Behaviors: None - Suicidal Ideation Suicidal Ideation: No - Homicidal Ideation Homicidal Ideation: No Goal/Treatment Plan - Goal/Treatment Plan Need for Continued Stay: Remain at risks for inpatient hospitalization, Discharge may exacerbated symptoms, Severe functional impairment Progress Toward Problem(s) and Goals/Treatment Plan: Patient education. Supportive therapy. Continue to treatment as before. Patient wants to go to [facility] for follow-up care after discharge from the hospital. Estimated Date of D/C: 07/21/18 - Smoking Cessation Smoking Cessation Initiated: Yes
--- NOTE | 2018-07-16 16:52 | PCM.PYCHPN ---
Psychiatric Progress Note - Psychiatric Progress Note Patient seen today, length of contact: 15 minutes Patient Chief Complaint: I'm not feeling better. I still have some withdrawal symptoms. Problems Identified/Issues Discussed: Patient seen, chart reviewed, case discussed with the staff. Issues related to illness and treatment were discussed with the patient and staff. Reported compliant with treatment with no adverse effects. Tolerating treatment very well. Patient reported not feeling well as he still have some withdrawal symptoms including abdominal cramps, nausea, sweating and body aches. Awake, alert and oriented x3. Calm and partially cooperative. Mood reported as depressed. Affect appropriate. Treatment discussed with the patient. Needs more time for stabilization. Aftercare discussed with the patient. Denied any delusions, auditory or visual hallucinations, suicidal ideations or homicidal ideations at the time of evaluation. Medical Problems: Hypertension Hypercholesterinemia Asthma COPD Diagnostic Results: Reviewed Medication Change: No Medical Record Reviewed: Yes Mental Status Examination - Cognitive Function Orientation: Person, Place, Situation, Time Memory: Intact Attention: WNL Concentration: WNL Association: [facility] Fund of Knowledge: [facility] Decription of patient's judgement and insights: Fair - Mood Mood: Depressed - Affect Affect: Depressed - Speech Speech: Appropriate - Formal Thought Process Formal Thought Process: No Impairment Psychotic Thoughts and Behaviors: None - Suicidal Ideation Suicidal Ideation: No - Homicidal Ideation Homicidal Ideation: No Goal/Treatment Plan - Goal/Treatment Plan Need for Continued Stay: Remain at risks for inpatient hospitalization, Discharge may exacerbated symptoms, Severe functional impairment Progress Toward Problem(s) and Goals/Treatment Plan: Patient education. Supportive therapy. Continue to treatment as before. Patient wants to go to [facility] for follow-up care after discharge from the hospital. Estimated Date of D/C: 07/21/18
--- NOTE | 2018-07-17 15:10 | PCM.PYCHPN ---
Psychiatric Progress Note - Psychiatric Progress Note Patient seen today, length of contact: 15 minutes Patient Chief Complaint: I'm not feeling better. I still have some withdrawal symptoms. Problems Identified/Issues Discussed: Patient seen, chart reviewed, case discussed with the staff. Issues related to illness and treatment were discussed with the patient and staff. Reported compliant with treatment with no adverse effects. Tolerating treatment very well. Patient reported not feeling well as he still have some withdrawal symptoms including abdominal cramps, nausea, sweating and body aches. Awake, alert and oriented x3. Calm and partially cooperative. Mood reported as depressed. Affect appropriate. Treatment discussed with the patient. Needs more time for stabilization. Aftercare discussed with the patient. Denied any delusions, auditory or visual hallucinations, suicidal ideations or homicidal ideations at the time of evaluation. Medical Problems: Hypertension Hypercholesterinemia Asthma COPD Diagnostic Results: Reviewed Medication Change: No Medical Record Reviewed: Yes Mental Status Examination - Cognitive Function Orientation: Person, Place, Situation, Time Memory: Intact Attention: WNL Concentration: WNL Association: [facility] Fund of Knowledge: [facility] Decription of patient's judgement and insights: Fair - Mood Mood: Depressed - Affect Affect: Depressed - Speech Speech: Appropriate - Formal Thought Process Formal Thought Process: No Impairment Psychotic Thoughts and Behaviors: None - Suicidal Ideation Suicidal Ideation: No - Homicidal Ideation Homicidal Ideation: No Goal/Treatment Plan - Goal/Treatment Plan Need for Continued Stay: Remain at risks for inpatient hospitalization, Discharge may exacerbated symptoms, Severe functional impairment Progress Toward Problem(s) and Goals/Treatment Plan: Patient education. Supportive therapy. Continue to treatment as before. Patient wants to go to [facility] for follow-up care after discharge from the hospital. Estimated Date of D/C: 07/21/18
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
[2018-07-17] MEDS ORDERED: Albuterol-Ipratrop 3 mg / 0.5 (3 ml) UD INH PRN (18:00)
[2018-07-17 20:17] LABS: CK-MB 0.76 ng/mL (0.0-3.38)
[2018-07-17 21:31] LABS: STREP PNEUMONIAE NEGATIVE (NEGATIVE)
[2018-07-18 07:02] LABS: BASO # 0.1 K/uL (0.0-0.2); BASO % 1.6 % (0.0-2.0); EOS # 0.2 K/uL (0.0-0.7); EOS % 3.1 % (0.0-4.0); HEMOGLOBIN 13.9 g/dL (12.0-18.0); LYMPH # 2.4 K/uL (1.0-4.3); MEAN CELL VOLUME 90.6 fL (80.0-94.0); MEAN CORPUSCULAR HEMOGLOBIN 30.3 pg (27.0-31.0); MEAN CORPUSCULAR HGB CONC 33.4 g/dL (33.0-37.0); MEAN PLATELET VOLUME 6.9 fL (7.2-11.7); MONO # 0.5 K/uL (0.0-0.8); MONO % 7.1 % (0.0-10.0); NEUT # 3.4 K/uL (1.8-7.0); NEUT % 52.2 % (50.0-75.0); NRBC % 0.1 % (0.0-2.0); RBC 4.58 Mil/uL (4.40-5.90); RED CELL DISTRIBUTION WIDTH 14.8 % (11.5-14.5); WHITE BLOOD COUNT 6.5 K/uL (4.8-10.8)
[2018-07-18 07:29] LABS: LDL CHOLESTEROL 116 mg/dL (0-129)
[2018-07-18 07:42] LABS: ALB/GLOB RATIO 1.2 (1.0-2.1); ALBUMIN 3.7 g/dL (3.5-5.0); ALT/SGPT 49 U/L (21-72); AST/SGOT 34 U/L (17-59); BLOOD UREA NITROGEN 40 mg/dL (9-20); CALCIUM 8.8 mg/dl (8.6-10.4); GFR NON-AFRICAN AMERICAN 58; HDL CHOLESTEROL 38 mg/dL (30-70)
[2018-07-18 07:49] LABS: HEPATITIS B SURFACE AG Negative (NEGATIVE)
[2018-07-18 07:54] LABS: HEPATITIS A IGM NEGATIVE (NEGATIVE); HEPATITIS B CORE AB NEGATIVE (NEGATIVE)
[2018-07-18] MEDS: Tiotropium 18 mcg Cap For Inhalation INH SCH ×2 (08:05→08:57)
[2018-07-18 08:06] LABS: HEPATITIS C ANTIBODY NEGATIVE (NEGATIVE)
--- NOTE | 2018-07-18 09:55 | RAD ---
Date of service: 07/17/2018 HISTORY: r/o pneumonia COMPARISON: Comparison chest 12/11/2017 TECHNIQUE: Chest PA and lateral FINDINGS: LUNGS: No active pulmonary disease. Tiny nodular densities seen in the right lateral upper lung field could represent vessel on end artifact versus tiny granulomata. PLEURA: No significant pleural effusion identified. No pneumothorax apparent. CARDIOVASCULAR: Mild aortic atherosclerotic calcification present. Normal cardiac size. No pulmonary vascular congestion. OSSEOUS STRUCTURES: Minor multilevel degenerative spondylosis of the thoracic spine VISUALIZED UPPER ABDOMEN: Normal. OTHER FINDINGS: None. IMPRESSION: No acute cardiopulmonary disease.
--- NOTE | 2018-07-18 11:36 | CP.PCM.PN ---
<Darin Dougherty - Last Filed: 07/18/18 17:59> Subjective - Date & Time of Evaluation Date of Evaluation: 07/18/18 Time of Evaluation: 11:35 - Subjective Subjective: Hospitalist Service Pt seen and examined at bedside. Pt denies acute events overnight, reports improved breathing symptoms. denies fc nv cp sob. Pt reports difficulty initiating urination, feels like he's retaining, unable to void completely. Objective - Vital Signs/Intake and Output Vital Signs (last 24 hours): Temp Pulse Resp BP Pulse Ox 98.3 F 87 18 134/79 95 07/18/18 06:31 07/18/18 08:45 07/18/18 06:31 07/18/18 08:45 07/14/18 03:05 - Medications Medications: Current Medications Al Hydrox/Mg Hydrox/Simethicone (Maalox 30 Ml) 30 ml PO TID PRN PRN Reason: Indigestion / Heartburn Albuterol (Ventolin Hfa 90 Mcg/Actuation (8 G)) 1 puff INH RQ6 PRN PRN Reason: Shortness of Breath Albuterol/Ipratropium (Duoneb 3 Mg/0.5 Mg (3 Ml) Ud) 3 ml INH RQ6 PRN PRN Reason: Shortness of Breath Benzonatate (Tessalon Perles) 100 mg PO TID [facility] Last Admin: 07/18/18 10:16 Dose: 100 mg Clonidine HCl (Catapres) 0.2 mg PO BID [facility] Last Admin: 07/18/18 10:14 Dose: Not Given Gabapentin (Neurontin) 400 mg PO TID [facility] Last Admin: 07/18/18 10:17 Dose: 400 mg Loperamide HCl (Imodium) 2 mg PO Q8 PRN PRN Reason: Diarrhea Loratadine (Claritin) 10 mg PO DAILY [facility] Last Admin: 07/18/18 10:17 Dose: 10 mg Metformin HCl (Glucophage) 500 mg PO BID [facility] Last Admin: 07/18/18 10:18 Dose: Not Given Moxifloxacin HCl (Avelox) 400 mg PO DAILY [facility]; Protocol Stop: 07/25/18 10:01 Last Admin: 07/18/18 10:17 Dose: 400 mg Nicotine (Nicoderm Cq) 1 patch TD DAILY [facility] Last Admin: 07/18/18 10:23 Dose: Not Given Sertraline HCl (Zoloft) 50 mg PO DAILY [facility] Last Admin: 07/18/18 10:17 Dose: 50 mg Tiotropium [place] (Spiriva) 18 mcg INH RQ24 [facility] Last Admin: 07/18/18 08:57 Dose: 18 mcg Trazodone HCl (Desyrel) 50 mg PO HS [facility] Last Admin: 07/17/18 22:34 Dose: 50 mg - Labs Labs: 07/18/18 06:47 07/18/18 06:47 - Additional Findings Additional findings: - Constitutional Appears: Non-toxic, No Acute Distress - Head Exam Head Exam: ATRAUMATIC, NORMAL INSPECTION, NORMOCEPHALIC Additional comments: 1 X acne vulgarius on chin - Eye Exam Eye Exam: EOMI, Normal appearance - ENT Exam ENT Exam: Mucous Membranes Moist - Respiratory Exam Respiratory Exam: Decreased Breath Sounds, Wheezes. absent: Rales, Respiratory Distress Additional comments: Wheezes scattered - Cardiovascular Exam Cardiovascular Exam: +S1, +S2. absent: Systolic Murmur - GI/Abdominal Exam GI & Abdominal Exam: Normal Bowel Sounds, Soft - Extremities Exam Extremities exam: Positive for: normal inspection. Negative for: calf tenderness, pedal edema, tenderness - Neurological Exam Neurological exam: Alert, Oriented x3 - Psychiatric Exam Psychiatric exam: Normal Affect, Normal Mood - Skin Skin Exam: Dry, Intact, Normal Color, Warm Assessment and Plan - Assessment and Plan (Free Text) Assessment: 48 M w/ PMHx of HTN, HLD, DM, COPD/asthma currently in detox for heroin & cocain, consulted for cough X 3 weeks: Pneumonia vs Bronchitis - scattered wheezes - afebrile, vitals WNL - F/u sputum sample - neg chest xray - F/u s pneumo, legionella mycoplasma, HIV, hep panel - Avelox 400 mg PO daily X 7 days - Claritin 10 mg PO daily - Tessalon Perles 100 mg PO TID Urinary Retention - History of COPD - spiriva 18 mcg Q24 - Duoenbs Q6H PRN - Ventolin Q6 PRN History of Hypertension - clonidine 0.2mg PO BID, History of Diabetes - on metformin 500mg daily -7.1 HgA1C History of Hyperlipidemia - previous lipid panel in 12/2017 LDL 139, cholesterol 230, HDL 58, TG 130 - normal lipid panel - Consider starting statin in AM History of Polysubstance abuse - Per Psychiatry Prophylaxis Diet: Heart Healthy DVt: pt is ambulatory, contraindicated GI: not indicated Please consult again if patient's status requires medical intervention <Lucrecia Lewis V - Last Filed: 07/21/18 15:16> Objective - Vital Signs/Intake and Output Vital Signs (last 24 hours): Temp Pulse Resp BP Pulse Ox 98.4 F 76 20 169/94 H 95 07/19/18 06:48 07/19/18 06:48 07/19/18 06:48 07/19/18 06:48 07/14/18 03:05 - Labs Labs: 07/18/18 06:47 07/18/18 06:47 Attending/Attestation - Attestation I have personally seen and examined this patient.: Yes I have fully participated in the care of the patient.: Yes I have reviewed all pertinent clinical information, including history, physical exam and plan: Yes Notes (Text): This is late computer entry for 07/18/18. Patient seen, examined, and case discussed with day-time resident. Patient seen in the afternoon. patient had noted with the resident he was having difficulty with urination in the morning; he has been able to urinate this afternoon. Recommended follow-up with urology in regards to workup for urinary hesistancy if persists. Medicine consult on cough, congestion with patient with underlying COPD, smoking history. Serology for Strep pneumonia, Legionella, and mycoplasma negative Pending sputum culture Chest xray does not show pneumonia. Recommended to continue abx to cover to cover for community acquired pneumonia. Medicine to sign off. Please reconsult if needed thank you.
--- NOTE | 2018-07-18 23:46 | PCM.PYCHPN ---
Psychiatric Progress Note - Psychiatric Progress Note Patient seen today, length of contact: 15 minutes Patient Chief Complaint: I'm not feeling better. I still have some withdrawal symptoms. Problems Identified/Issues Discussed: Patient seen, chart reviewed, case discussed with the staff. Issues related to illness and treatment were discussed with the patient and staff. Reported compliant with treatment with no adverse effects. Tolerating treatment very well. Patient reported not feeling well as he still have some withdrawal symptoms including abdominal cramps, nausea, sweating and body aches. Awake, alert and oriented x3. Calm and partially cooperative. Mood reported as depressed. Affect appropriate. Treatment discussed with the patient. Needs more time for stabilization. Aftercare discussed with the patient. Denied any delusions, auditory or visual hallucinations, suicidal ideations or homicidal ideations at the time of evaluation. Medical Problems: Hypertension Hypercholesterinemia Asthma COPD Diagnostic Results: Reviewed Medication Change: No Medical Record Reviewed: Yes Mental Status Examination - Cognitive Function Orientation: Person, Place, Situation, Time Memory: Intact Attention: WNL Concentration: WNL Association: [facility] Fund of Knowledge: [facility] Decription of patient's judgement and insights: Fair - Mood Mood: Depressed - Affect Affect: Depressed - Speech Speech: Appropriate - Formal Thought Process Formal Thought Process: No Impairment Psychotic Thoughts and Behaviors: None - Suicidal Ideation Suicidal Ideation: No - Homicidal Ideation Homicidal Ideation: No Goal/Treatment Plan - Goal/Treatment Plan Need for Continued Stay: Remain at risks for inpatient hospitalization, Discharge may exacerbated symptoms, Severe functional impairment Progress Toward Problem(s) and Goals/Treatment Plan: Patient education. Supportive therapy. Continue to treatment as before. Patient wants to go to [facility] for follow-up care after discharge from the hospital. Estimated Date of D/C: 07/21/18
[2018-07-19 06:48] VITALS: BP 169/94; PULSE 76; RESP 20; TEMP 98.4
[2018-07-19] MEDS: Tiotropium 18 mcg Cap For Inhalation INH SCH (08:21)
--- NOTE | 2018-07-19 14:18 | CARD ---
APPROVED REPORT Date of service: 07/17/2018 EKG Measurement Heart [id number] <Conclusion> Normal sinus rhythm Anterior infarct, age undetermined Abnormal ECG
== END 2018-07-19 15:37 | disposition home or self-care (01) | DRG 430 ==
LOC: C.ER 00:31 → C.5E 02:11
PROC: GZ3ZZZZ Medication Management (ICD-10-PCS; principal; 2018-07-14)
PROC: HZ2ZZZZ Detoxification Services for Substance Abuse Treatment (ICD-10-PCS; 2018-07-14)
PROC: GZHZZZZ Group Psychotherapy (ICD-10-PCS; 2018-07-14)
PROC: HZ80ZZZ Medication Management for Substance Abuse Treatment, Nicotine Replacement (ICD-10-PCS; 2018-07-14)
PROC: GZ56ZZZ Individual Psychotherapy, Supportive (ICD-10-PCS; 2018-07-14)
DX: F33.2 Major depressive disorder, recurrent severe without psychotic features (principal); F11.20 Opioid dependence, uncomplicated; F14.20 Cocaine dependence, uncomplicated; R45.851 Suicidal ideations; J18.9 Pneumonia, unspecified organism; J44.0 Chronic obstructive pulmonary disease with (acute) lower respiratory infection; J20.9 Acute bronchitis, unspecified; F17.210 Nicotine dependence, cigarettes, uncomplicated; E11.9 Type 2 diabetes mellitus without complications; I10 Essential (primary) hypertension; E78.5 Hyperlipidemia, unspecified; E78.00 Pure hypercholesterolemia, unspecified; L70.0 Acne vulgaris; Z59.0 Homelessness; Z79.84 Long term (current) use of oral hypoglycemic drugs; Z91.19 Patient's noncompliance with other medical treatment and regimen

== ENCOUNTER 2018-09-04 23:54 | Inpatient (IN) | payer MEDICAID ==
--- NOTE | 2018-09-05 00:32 | C.PDOC ---
History Of Present Illness 48 year old male presents to the ER with suicidal ideation with plan to jump into traffic. He states he tried to jump into traffic this evening but the police pulled him back. Patient has a Hx of depression, cocaine abuse, and heroin abuse, states he does 10-12 bag intranasally a day, admits to cocaine use today. Denies ETOH use, hallucination, or homicidal ideation. Patient has Hx of admission for depression. PMHx: Asthma Social Hx: Smoker Family Hx: no significant Hx <Wandy Barrientos - Last Filed: 09/09/18 14:19> <Napoleon Gentile - Last Filed: 09/05/18 03:20> History Per: Patient History/Exam Limitations: no limitations Onset/Duration Of Symptoms: Hrs Current Symptoms Are (Timing): Still Present Suicide/Self Injury Attempted (Context): None Modifying Factor(s): Cocaine Associated Symptoms: Depression, Suicidal Thoughts, Suicidal Plan Involuntary Hold By: None Recent travel outside of the [place]: No <Wandy Barrientos - Last Filed: 09/09/18 14:19> Time Seen by Provider: 09/05/18 00:12 Chief Complaint (Nursing): Psychiatric Evaluation Past Medical History Vital Signs: Last Vital Signs Temp 98.3 F 09/05/18 00:00 Pulse 83 09/05/18 00:00 Resp 20 09/05/18 00:00 BP 145/76 09/05/18 00:00 Pulse Ox 93 L 09/05/18 00:39 - [facility] Procedures DETOXIFICATION SERVICES FOR SUBSTANCE ABUSE TREATMENT (07/14/18) GROUP PSYCHOTHERAPY (07/14/18) INDIV PSYCHOTHERAPY FOR SUBSTANCE ABUSE TREATMENT, SUPPORT (01/15/17) INDIVIDUAL PSYCHOTHERAPY, SUPPORTIVE (07/14/18) MEDICATION MANAGEMENT (07/14/18) MEDS MGMT FOR SUBSTANCE ABUSE TREATMENT, NICOTINE REPLACE (07/14/18) <Napoleon Gentile - Last Filed: 09/05/18 03:20> Reviewed: Historical Data, Nursing Documentation, Vital Signs Vital Signs: Last Vital Signs Temp 98.3 F 09/05/18 00:00 Pulse 83 09/05/18 00:00 Resp 20 09/05/18 00:00 BP 145/76 09/05/18 00:00 Pulse Ox 93 L 09/05/18 00:00 - Medical History PMH: Asthma, COPD, Depression, HTN, Hypercholesterolemia Denies: Diabetes, Hepatitis, HIV, Chronic Kidney Disease, Seizures, Sexually Transmitted Disease - [facility] Procedures DETOXIFICATION SERVICES FOR SUBSTANCE ABUSE TREATMENT (07/14/18) GROUP PSYCHOTHERAPY (07/14/18) INDIV PSYCHOTHERAPY FOR SUBSTANCE ABUSE TREATMENT, SUPPORT (01/15/17) INDIVIDUAL PSYCHOTHERAPY, SUPPORTIVE (07/14/18) MEDICATION MANAGEMENT (07/14/18) MEDS MGMT FOR SUBSTANCE ABUSE TREATMENT, NICOTINE REPLACE (07/14/18) Family History: States: Unknown Family Hx - Social History Hx Tobacco Use: Yes Hx Alcohol Use: No Hx Substance Use: Yes - Immunization History Hx Tetanus Toxoid Vaccination: Yes Hx Influenza Vaccination: No Hx Pneumococcal Vaccination: No <Wandy Barrientos - Last Filed: 09/09/18 14:19> Review Of Systems Except As Marked, All Systems Reviewed And Found Negative. Psych: Positive for: Suicidal ideation (w/ plan). Negative for: Other (Homicidal ideation, Hallucinations) <Wandy Barrientos - Last Filed: 09/09/18 14:19> Physical Exam - Physical Exam Appears: No Acute Distress, Other (Depressed mood and affect) Skin: Warm, Dry Head: Atraumatic, Normacephalic Eye(s): bilateral: PERRL, EOMI Oral Mucosa: Moist Lips: Normal Appearing Neck: Normal ROM, Trachea Midline Chest: Symmetrical Cardiovascular: Rhythm Regular, No Murmur Respiratory: No Accessory Muscle Use, Wheezing (Scattered and expiratory), No Other (Respiratory distress, Good air movement) Gastrointestinal/Abdominal: Soft, No Tenderness Back: Normal Inspection, No Decreased ROM Extremity: Normal ROM, No Deformity Neurological/Psych: Normal Speech, Normal Motor <Wandy Barrientos - Last Filed: 09/09/18 14:19> ED Course And Treatment - Laboratory Results Result Diagrams: 09/05/18 02:14 09/05/18 02:14 Lab Results: Total Bilirubin 0.4 mg/dL (0.2-1.3) 09/05/18 02:14 AST 32 U/L (17-59) 09/05/18 02:14 ALT 29 U/L (21-72) 09/05/18 02:14 Alkaline Phosphatase 82 U/L (38-126) 09/05/18 02:14 Total Protein 7.1 g/dL (6.3-8.3) 09/05/18 02:14 Albumin 4.1 g/dL (3.5-5.0) 09/05/18 02:14 Globulin 3.0 gm/dL (2.2-3.9) 09/05/18 02:14 Albumin/Globulin Ratio 1.4 (1.0-2.1) 09/05/18 02:14 Urine Color Yellow (YELLOW) 09/05/18 02:14 Urine Clarity Clear (Clear) 09/05/18 02:14 Urine pH 5.0 (5.0-8.0) 09/05/18 02:14 Ur Specific [place] 1.020 (1.003-1.030) 09/05/18 02:14 Urine Protein 1+ mg/dL (NEGATIVE) H 09/05/18 02:14 Urine Glucose (UA) Normal mg/dL (Normal) 09/05/18 02:14 Urine Ketones Negative mg/dL (NEGATIVE) 09/05/18 02:14 Urine Blood Negative (NEGATIVE) 09/05/18 02:14 Urine Nitrate Negative (NEGATIVE) 09/05/18 02:14 Urine Bilirubin Negative (NEGATIVE) 09/05/18 02:14 Urine Urobilinogen 2.0 mg/dL (0.2-1.0) 09/05/18 02:14 Ur Leukocyte Esterase Neg Carolyn/uL (Negative) 09/05/18 02:14 Urine WBC (Auto) 1 /hpf (0-5) 09/05/18 02:14 Urine RBC (Auto) < 1 /hpf (0-3) 09/05/18 02:14 Hyaline Casts 6-10 /lpf (0-2) H 09/05/18 02:14 Lab Interpretation: Abnormal (tox + opiates/cocaine) Pulse Ox Interpretation: Normal Reevaluation Time: 03:20 Reassessment Condition: Improved <Napoleon Gentile - Last Filed: 09/05/18 03:20> - Laboratory Results Result Diagrams: 09/05/18 02:14 09/05/18 02:14 O2 Sat by Pulse Oximetry: 93 (Room air) Pulse Ox Interpretation: Normal <Wandy Barrientos - Last Filed: 09/09/18 14:19> Medical Decision Making Medical Decision Makin: signed over to this MD to f/u Crisis Eval 0315: d/w Crisis, ok to admit. <Napoleon Gentile - Last Filed: 09/05/18 03:20> Medical Decision Making: Impression: Depression with suicidal ideation. Plan: Psych work up, pending crisis eval <Wandy Barrientos - Last Filed: 09/09/18 14:19> Disposition Doctor Will See Patient In The: Hospital Counseled Patient/Family Regarding: Studies Performed, Diagnosis - Disposition Disposition Time: 03:21 <Napoleon Gentile - Last Filed: 09/05/18 03:20> <Wandy Barrientos - Last Filed: 09/09/18 14:19> - Disposition Disposition: HOSPITALIZED Condition: GOOD - Clinical Impression Clinical Impression: Polysubstance (including opioids) dependence, daily use, Depression - Scribe Statement The provider has reviewed the documentation as recorded by the Scribchel Graves All medical record entries made by the Scribe were at my direction and personally dictated by me. I have reviewed the chart and agree that the record accurately reflects my personal performance of the history, physical exam, medic al decision making, and the department course for this patient. I have also personally directed, reviewed, and agree with the discharge instructions and disposition. <Wandy Barrientos - Last Filed: 09/09/18 14:19> Physician Patient Turnover Patient Signed Over To: Napoleon Gentile Handoff Comments: Pending crisis evaluation and final ER disposition <Wandy Barrientos - Last Filed: 09/09/18 14:19>
[2018-09-05 02:24] LABS: URINE BILIRUBIN NEGATIVE (NEGATIVE); URINE BLOOD NEGATIVE (NEGATIVE); URINE CLARITY Clear (Clear); URINE COLOR Yellow (YELLOW); URINE GLUCOSE (UA) NORMAL (Normal); URINE LEUKOCYTE ESTERASE NEG Leu/uL (Negative); URINE PROTEIN 1+ mg/dL (NEGATIVE)
[2018-09-05 02:25] LABS: BASO % 0.8 % (0.0-2.0); EOS # 0.2 K/uL (0.0-0.7); EOS % 3.4 % (0.0-4.0); HEMOGLOBIN 12.8 g/dL (12.0-18.0); LYMPH # 1.9 K/uL (1.0-4.3); LYMPH % 29.6 % (20.0-40.0); MEAN CELL VOLUME 92.1 fL (80.0-94.0); MEAN CORPUSCULAR HEMOGLOBIN 30.2 pg (27.0-31.0); MEAN CORPUSCULAR HGB CONC 32.8 g/dL (33.0-37.0); MONO # 0.5 K/uL (0.0-0.8); MONO % 7.9 % (0.0-10.0); NEUT # 3.8 K/uL (1.8-7.0); NEUT % 58.3 % (50.0-75.0); RBC 4.25 Mil/uL (4.40-5.90); RED CELL DISTRIBUTION WIDTH 14.4 % (11.5-14.5); WHITE BLOOD COUNT 6.5 K/uL (4.8-10.8)
[2018-09-05 02:47] LABS: ACETAMINOPHEN < 10.0 ug/mL (10.0-30.0); ALB/GLOB RATIO 1.4 (1.0-2.1); ALBUMIN 4.1 g/dL (3.5-5.0); ALT/SGPT 29 U/L (21-72); AST/SGOT 32 U/L (17-59); BLOOD UREA NITROGEN 35 mg/dL (9-20); CALCIUM 8.9 mg/dl (8.6-10.4); GFR NON-AFRICAN AMERICAN 43; SALICYLATE < 1.0 mg/dL 1
[2018-09-05 02:57] LABS: BARBITURATES, UR NEGATIVE (NEGATIVE); BENZODIAZEPINES, UR NEGATIVE (NEGATIVE); PHENCYCLIDINE, UR NEGATIVE (NEGATIVE)
[2018-09-05 03:02] LABS: OPIATES, UR POSITIVE (NEGATIVE)
--- NOTE | 2018-09-05 04:30 | PCM.BM ---
<Celestino Cabrera - Last Filed: 09/05/18 04:27> Treatment Plan Problems - Problems identified on initial assessmt ALTERED THOUGHT PROCESS Date Initiated: 09/05/18 Time Initiated: 03:50 Assessment reference: NA Status: Active SUBSTANCE ABUSE Date Initiated: 09/05/18 Time Initiated: 03:50 Assessment reference: NA Status: Active Treatment assets and liabiliti Patient Assests: cooperative, self-reliant, ADL independent, negotiates basic needs Patient Liabilities: live alone, financial problems, poor support system, substance abuse, medical problems - Milieu Protocol Maintain good personal hygiene: daily Encourage regular showers, daily Remind patient to perform daily oral care, daily Assist patient to perform ADL's Maintain personal safety: every shift Educate patient to report safety concerns to staff, every shift Monitor environment for contraband/sharps Medication safety: Monitor for expected outcome, potential side effects: every shift, Assess barriers to learning: every shift, Assess readiness for medication education: every shift <Samantha Casillas - Last Filed: 09/05/18 11:02> - Diagnosis (1) Depression Status: Acute Interventions: 09/05/18 11:02 * Assess/adjust medications daily and /or as needed * See patient on an individual basis 7x/week to assess symptoms of depression * Monitor for side effects & effectiveness of medications * (2) Heroin dependence Status: Acute Interventions: 09/05/18 11:02 * Assess 7x/week regarding severity of withdrawal * Educate regarding risks, benefits, side effects and alternatives of medications * Use Motivational Interviewing for abstinence * Use CBT for relapse prevention * Medication management for withdrawal symptoms * Encourage medication assisted treatment * <Shahrzad Cobb - Last Filed: 09/05/18 12:10> Family Contact Family involvement: Famliy/SO not involved - Goals for Treatment Patient goals for treatment: "I [facility] to go to [facility] Discharge/Continuing Care - Education Needs Education Needs: Patient Medication, Patient Coping Skills, Patient Placement options, Patient Community resources - Discharge Discharge Criteria: Tolerates medication w/o severe side effects, No longer exhibiting s/s of withdrawal, Reduction of target symptoms Discharge to:: Substance Abuse Rehab - Treatment Team Participation Discussed with Family/SO: No Was Patient/Family/SO present at Treatment Team Meeting: Yes
--- NOTE | 2018-09-05 09:54 | RAD ---
Date of service: 09/05/2018 HISTORY: Asthma COMPARISON: 07/17/2018. TECHNIQUE: Chest PA and lateral FINDINGS: LINES AND TUBES: None. LUNG AND PLEURA: The lungs are well inflated and clear. No pleural effusion or pneumothorax. HEART AND MEDIASTINUM: The heart is not enlarged. No aortic atherosclerotic calcifications present. The hilar and mediastinal contours are within normal limits. SKELETAL STRUCTURES: The bony structures are within normal limits for the patient's age. VISUALIZED UPPER ABDOMEN: Normal. OTHER FINDINGS: None. IMPRESSION: No active pulmonary disease.
--- NOTE | 2018-09-05 10:36 | PCM.PSYCH ---
Initial Psychiatric Evaluation - Initial Psychiatric Evaluation Type of Admission: Voluntary Legal Status: Capacity Chief Complaint (in patient's own words): I was feeling depressed and suicidal.' History of Present Illness and Precipitating Events: 48 year old male who is single, unemployed, and homeless with a history of major depressive disorder presents to the ED with depressive symptoms and suicidal ideations. Pt reports that he came to the hospital because he felt like he wanted to kill himself after being kicked out of the [employer] and becoming homeless. Following getting kicked out of the [employer], pt states he relapsed on heroin and cocaine. Pt states he currently sniffs about 10 bags of heroin per day and smoking 3 to 4 bottles of cocaine per day. Pt also states he smokes a pack of cigarettes per day. Pt started using heroin 5 years ago after he was released from detention, using 15 bags/day at the most, but averaging 10 bags/day, with the longest time sober for 6 months in 2014. Pt started used cocaine 5 years ago, using 10 bottles/day at the most, but averaging 3-4 bottles/day. Pt was last hospitalized at [facility] 2 months ago for similar reasons. Pt reports numerous suicidal attempts in the past via cutting, jumping in front of cars, and overdosing on pills. Pt has had 4 inpatient psychiatric hospitalizations in the past and 1 time in detox. Pt states that he is feeling depressed, helpless, hopeless, guilty, has lack of sleep, and lack of appetite. Pt further elaborates that he had feelings of withdrawal last night, consisting of sweats, nausea, vomiting, cramps, and muscle twitching, but those symptoms have resolved since receiving his methadone treatment. Pt denies homicidal ideations, visual and auditory hallucinations, and paranoia. Past Psych Hx: Depression Fam Psych Hx: Father- alcohol abuse PMH: HTN, COPD, Asthma Current Medications: Active Medications Generic Name Dose Route Start Last Admin Trade Name Freq PRN Reason Stop Dose Admin Influenza Virus Vaccine 60 mcg 09/06/18 10:00 Flucelvax Quad [id number] Syr IM 09/06/18 10:01 .ONCE ONE Nicotine 1 patch 09/05/18 10:00 09/05/18 09:52 Nicoderm Cq TD 1 patch DAILY [facility] Administration Pneumococcal Polyvalent Vaccine 0.5 ml 09/06/18 10:30 Pneumovax 23 Vaccine IM 09/06/18 10:31 .ONCE ONE Past Psychiatric History - Past Psychiatric History Previous Treatment History: Inpatient Pertinent Medical Hx (Current Medical&Sleep Prob, Allergies): Allergies Allergy/AdvReac Type Severity Reaction Status Date / Time No Known Allergies Allergy Verified 09/05/18 00:03 QUEtiapine [SEROquel] 50 mg PO HS #30 tab 12/13/17 Gabapentin [Neurontin] 300 mg PO BID 12/24/17 Lorazepam [Ativan] 0.5 mg PO PRN PRN 12/24/17 Lorazepam [Ativan] 1 mg PO DAILY 07/14/18 cloNIDine [clonidine HCl] 0.2 mg PO BID 07/14/18 Albuterol HFA [Ventolin HFA 90 mcg/actuation (8 g)] 1 puff INH RQ6 PRN #1 inhaler 07/18/18 Lisinopril [Zestril] 2.5 mg PO DAILY #30 tab 07/18/18 Tiotropium Schuyler Inhaler [Spiriva Inhalation Handihaler Device] 1 inhaler INH ONCE #1 inhaler 07/18/18 Tiotropium [Spiriva] 18 mcg INH RQ24 #1 cap 07/18/18 metFORMIN [glucOPHAGE] 500 mg PO BID #60 tab 07/18/18 Review of Systems - Review of Systems All systems: reviewed and no additional remarkable complaints except - Psychiatric Psychiatric: Anxiety, Depression, Hopelessness, Irritability, Suicidal Ideation Mental Status Examination - Personal Presentation Personal Presentation: Looks stated age - Affect Affect: Constricted, Depressed - Motor Activity Motor Activity: Calm - Reliability in Providing Information Reliability in Providing Information: Fair - Speech Speech: Organized - Mood Mood: Depressed, Anxious - Formal Thought Process Formal Thought Process: No Impairment - Obsessions/Compulsions Obsessions: No Compulsions: No - Cognitive Functions Orientation: Person, Place, Situation, Time Sensorium: Alert Attention/Concentration: Attentive Abstract Thinking: Pandora Estimate of Intelligence: Below average Judgement: Imparied, as evidence by: Poor judgement, Imparied, as evidence by: Lack of insight into illness - Risk Risk: Suicidal, Withdrawal, Diminished functioning - Limitations Limitations: Living alone DSM 5 DX - DSM 5 DSM 5 Diagnosis: Major depressive disorder recurrent severe without psychotic features Opioid use disorder severe Opioid withdrawal Cocaine use disorder moderate CBT Psychoeducation Supportive therapy, group therapy, individual therapy Trazodone 50 mg p.o. nightly Ativan 0.5 mg p.o. every 6 hours as needed for alcohol withdrawal Zoloft 25 mg p.o. daily Neurontin 100 mg p.o. 3 times daily - Recommended/Plan of Treatment Treatment Recommendations and Plan of Treatment: Major depressive disorder recurrent severe without psychotic features Opioid use disorder severe Opioid withdrawal Cocaine use disorder moderate CBT Psychoeducation Supportive therapy, group therapy, individual therapy Trazodone 50 mg p.o. nightly Methadone taper Cymbalta 20 mg p.o. daily Neurontin 100 mg p.o. 3 times daily - Smoking Cessation Smoking Cessation Initiated: No
[2018-09-05] MEDS: Albuterol HFA 90 mcg/actuation (8 g) INH PRN (19:18)
[2018-09-06] MEDS: Vitamins A & D Oint UD Foilpak TOP PRN (04:57)
[2018-09-06] MEDS: Albuterol HFA 90 mcg/actuation (8 g) INH PRN (04:57)
[2018-09-06] MEDS ORDERED: Influenza Vaccine 60 mcg/0.5 mL SYR (4YR UP) IM ONE (10:00)
[2018-09-06] MEDS ORDERED: Pneumococcal 23-Valent Vaccine IM ONE (10:30)
[2018-09-07] MEDS: Vitamins A & D Oint UD Foilpak TOP PRN (17:36)
--- NOTE | 2018-09-07 23:21 | PCM.PYCHPN ---
Psychiatric Progress Note - Psychiatric Progress Note Patient seen today, length of contact: 15 min Patient Chief Complaint: "Not doing well yet, I need more meds" Problems Identified/Issues Discussed: The pt is seen, chart reviewed, case is discussed with staff. The pt is compliant with medications and reports no side-effects. Symptoms are improving but needs more time to stabilize and to avoid relapse. Pt attends groups and activities. Support given, psycho-education provided. After care discussed. Medication Change: Yes (methadone adjusted) Medical Record Reviewed: Yes Mental Status Examination - Cognitive Function Orientation: Person, Place, Situation, Time Memory: Intact Attention: Poor Concentration: Poor Association: WNL Fund of Knowledge: WNL - Mood Mood: Depressed, Anxious - Affect Affect: Constricted, Depressed - Speech Speech: Appropriate - Formal Thought Process Formal Thought Process: No Impairment - Suicidal Ideation Suicidal Ideation: No - Homicidal Ideation Homicidal Ideation: No Goal/Treatment Plan - Goal/Treatment Plan Need for Continued Stay: Discharge may exacerbated symptoms, Severe functional impairment Progress Toward Problem(s) and Goals/Treatment Plan: Continue medications Support and psychoeducation daily Attend groups and activities daily Individual therapy After care planning by HOLLI and the team
--- NOTE | 2018-09-07 23:22 | PCM.PYCHPN ---
Psychiatric Progress Note - Psychiatric Progress Note Patient seen today, length of contact: 15 min Patient Chief Complaint: "Not doing well yet, I need more meds" Problems Identified/Issues Discussed: The pt is seen, chart reviewed, case is discussed with staff. The pt is compliant with medications and reports no side-effects. Symptoms are improving but needs more time to stabilize and to avoid relapse. Pt attends groups and activities. Support given, psycho-education provided. After care discussed. Medication Change: Yes (add losartan) Medical Record Reviewed: Yes Mental Status Examination - Cognitive Function Orientation: Person, Place, Situation, Time Memory: Intact Attention: Poor Concentration: Poor Association: WNL Fund of Knowledge: WNL - Mood Mood: Depressed, Anxious - Affect Affect: Constricted, Depressed - Speech Speech: Appropriate - Formal Thought Process Formal Thought Process: No Impairment - Suicidal Ideation Suicidal Ideation: No - Homicidal Ideation Homicidal Ideation: No Goal/Treatment Plan - Goal/Treatment Plan Need for Continued Stay: Discharge may exacerbated symptoms, Severe functional impairment Progress Toward Problem(s) and Goals/Treatment Plan: Continue medications Support and psychoeducation daily Attend groups and activities daily Individual therapy After care planning by HOLLI and the team
[2018-09-08] MEDS: Albuterol HFA 90 mcg/actuation (8 g) INH PRN (08:37)
[2018-09-09] MEDS: Albuterol HFA 90 mcg/actuation (8 g) INH PRN (06:37)
[2018-09-09] MEDS: Aluminum Hydroxide/Magnesium Hydroxide Susp (30 mL) PO PRN (10:09)
[2018-09-09 14:18] VITALS: O2SAT 93
--- NOTE | 2018-09-09 15:25 | PCM.PYCHPN ---
Psychiatric Progress Note - Psychiatric Progress Note Patient seen today, length of contact: 15 min Patient Chief Complaint: I m feeling little better.' Problems Identified/Issues Discussed: Patient was seen and evaluated, chart reviewed and discussed with the staff. As per staff patient remained depressed, withdrawn and confined to his room. He still reports depressed mood and at times feelings of hopelessness and helplessness. He still reports withdrawal symptoms of heroin including nausea, cramps, joint pains. He remained isolative and withdrawn. He is taking medication denies any side effects. Symptoms are improving but he needs to stay longer for further stabilization. Supportive therapy was given Medication Change: Yes (add losartan) Medical Record Reviewed: Yes Mental Status Examination - Cognitive Function Orientation: Person, Place, Situation, Time Memory: Intact Attention: Poor Concentration: Poor Association: WNL Fund of Knowledge: WNL - Mood Mood: Depressed, Anxious - Affect Affect: Constricted, Depressed - Speech Speech: Appropriate - Formal Thought Process Formal Thought Process: No Impairment - Suicidal Ideation Suicidal Ideation: No - Homicidal Ideation Homicidal Ideation: No Goal/Treatment Plan - Goal/Treatment Plan Need for Continued Stay: Discharge may exacerbated symptoms, Severe functional impairment, Other Progress Toward Problem(s) and Goals/Treatment Plan: Major depressive disorder recurrent severe without psychotic features Opioid use disorder severe Opioid withdrawal Cocaine use disorder moderate CBT Psychoeducation Supportive therapy, group therapy, individual therapy Trazodone 50 mg p.o. nightly Methadone taper Cymbalta 60 mg p.o. daily Neurontin 300 mg p.o. 2 times daily Methadone taper
[2018-09-09] MEDS: Vitamins A & D Oint UD Foilpak TOP PRN (21:16)
[2018-09-09] MEDS ORDERED: Hydrocortisone 1% Cream (30 GM) TOP PRN (22:57)
[2018-09-10] MEDS: Aluminum Hydroxide/Magnesium Hydroxide Susp (30 mL) PO PRN ×2 (09:26→18:46)
[2018-09-11 06:41] VITALS: BP 182/104; PULSE 82; RESP 19; TEMP 98.3
--- NOTE | 2018-09-11 10:34 | PCM.PYCHDC ---
Mental Status Examination - Mental Status Examination Orientation: Person, Place, Situation, Time Memory: Intact Mood: Neutral Affect: Constricted Speech: Soft Attention: WNL Concentration: WNL Association: WNL Fund of Knowledge: WNL Formal Thought Process: No Impairment Description of patient's judgement and insight: good, fair Psychotic Thoughts and Behaviors: denies any AVH Suicidal Ideation: No Current Homicidal Ideation?: No Discharge Summary - Discharge Note Reason for Hospitalization: 48 year old male who is single, unemployed, and homeless with a history of major depressive disorder presents to the ED with depressive symptoms and suicidal ideations. Pt reports that he came to the hospital because he felt like he wanted to kill himself after being kicked out of the [facility] and becoming homeless. Following getting kicked out of the [facility], pt states he relapsed on heroin and cocaine. Pt states he currently sniffs about 10 bags of heroin per day and smoking 3 to 4 bottles of cocaine per day. Pt also states he smokes a pack of cigarettes per day. Pt started using heroin 5 years ago after he was [facility], using 15 bags/day at the most, but averaging 10 bags/day, with the longest time sober for 6 months in 2014. Pt started used cocaine 5 years ago, using 10 bottles/day at the most, but averaging 3-4 bottles/day. Pt was last hospitalized at [facility] 2 months ago for similar reasons. Pt reports numerous suicidal attempts in the past via cutting, jumping in front of cars, and overdosing on pills. Pt has had 4 inpatient psychiatric hospitalizations in the past and 1 time in detox. Pt states that he is feeling depressed, helpless, hopeless, guilty, has lack of sleep, and lack of appetite. Pt further elaborates that he had feelings of withdrawal last night, consisting of sweats, nausea, vomiting, cramps, and muscle twitching, but those symptoms have resolved since receiving his methadone treatment. Pt denies homicidal ideations, visual and auditory hallucinations, and paranoia. Consultations:: List each consultation separately and include: 1. Reason for request. 2. Findings. 3. Follow-up Summary of Hospital Course include:: 1. Description of specific treatment plan utilized for patients during their course of treatmen. 2. Summarize the time- course for resolution of acute symptoms and/or regressed behaviors. 3. Describe issues identified and worked on during hospitalization. 4. Describe medication utilized. 5. Describe medical problems identified and treated. 6. Reassessment of suicide risk Summary of Hospital Course: 48 year old male who is single, unemployed, and homeless with a history of major depressive disorder presents to the ED with depressive symptoms and suicidal ideations. Pt reports that he came to the hospital because he felt like he wanted to kill himself after being kicked out of the [facility] and becoming homeless. Following getting kicked out of the [facility], pt states he relapsed on heroin and cocaine. Pt states he currently sniffs about 10 bags of heroin per day and smoking 3 to 4 bottles of cocaine per day. Pt also states he smokes a pack of cigarettes per day. Pt started using heroin 5 years ago after he was released from [facility], using 15 bags/day at the most, but averaging 10 bags/day, with the longest time sober for 6 months in 2014. Pt started used cocaine 5 years ago, using 10 bottles/day at the most, but averaging 3-4 bottles/day. Pt was last hospitalized at [facility] 2 months ago for similar reasons. Pt reports numerous suicidal attempts in the past via cutting, jumping in front of cars, and overdosing on pills. Pt has had 4 inpatient psychiatric hospitalizations in the past and 1 time in detox. Pt states that he is feeling depressed, helpless, hopeless, guilty, has lack of sleep, and lack of appetite. Pt further elaborates that he had feelings of withdrawal last night, consisting of sweats, nausea, vomiting, cramps, and muscle twitching, but those symptoms have resolved since receiving his methadone treatment. Pt denies homicidal ideations, visual and auditory hallucinations, and paranoia. Past Psych Hx: Depression Fam Psych Hx: Father- alcohol abuse PMH: HTN, COPD, Asthma - Diagnosis (1) Depression Current Visit: Yes Status: Acute (2) Heroin dependence Current Visit: No Status: Acute - Final Diagnosis (DSM 5) Condition upon Discharge: GOOD DSM 5: Major depressive disorder recurrent severe without psychotic features Opioid use disorder severe Opioid withdrawal Cocaine use disorder moderate Disposition: HOME/ ROUTINE Follow-up Treatment Plan: Major depressive disorder recurrent severe without psychotic features Opioid use disorder severe Opioid withdrawal Cocaine use disorder moderate CBT Psychoeducation Supportive therapy, group therapy, individual therapy Trazodone 50 mg p.o. nightly Methadone taper Cymbalta 60 mg p.o. daily Neurontin 300 mg p.o. 2 times daily Methadone taper Prescriptions/Medication Reconciliation: Albuterol HFA [Ventolin HFA 90 mcg/actuation (8 g)] 1 puff INH RQ6 PRN #30 inhaler PRN Reason: Shortness Of Breath DULoxetine [Cymbalta] 60 mg PO DAILY #30 ecc Gabapentin [Neurontin] 300 mg PO BID #60 cap Losartan [Cozaar] 50 mg PO DAILY #30 tab traZODone [Desyrel] 50 mg PO HS #30 tab - Smoking Cessation Smoking Cessation Medication prescribed: No - Antipsychotic Medications Pt discharged on 2 or more routine antipsychotic medications: No
== END 2018-09-11 11:26 | disposition home or self-care (01) | DRG 430 ==
LOC: C.ER 23:54 → C.5E 09-05 03:21
PROVIDERS: ADMIT Psychiatry & Neurology Psychiatry; ATTEND Psychiatry & Neurology Psychiatry
PROC: GZHZZZZ Group Psychotherapy (ICD-10-PCS; principal; 2018-09-05)
PROC: GZ56ZZZ Individual Psychotherapy, Supportive (ICD-10-PCS; 2018-09-05)
DX: F33.2 Major depressive disorder, recurrent severe without psychotic features (principal); F11.23 Opioid dependence with withdrawal; J44.9 Chronic obstructive pulmonary disease, unspecified; F14.10 Cocaine abuse, uncomplicated; I10 Essential (primary) hypertension; F17.210 Nicotine dependence, cigarettes, uncomplicated; Z59.0 Homelessness; E78.00 Pure hypercholesterolemia, unspecified; R45.851 Suicidal ideations

== ENCOUNTER 2018-11-11 16:18 | Inpatient (IN) | payer MEDICAID ==
[2018-11-11 18:51] LABS: BASO # 0.1 K/uL (0.0-0.2); BASO % 0.8 % (0.0-2.0); EOS # 0.1 K/uL (0.0-0.7); LYMPH # 1.4 K/uL (1.0-4.3); LYMPH % 23.2 % (20.0-40.0); MEAN CELL VOLUME 92.8 fL (80.0-94.0); MEAN CORPUSCULAR HEMOGLOBIN 30.3 pg (27.0-31.0); MEAN CORPUSCULAR HGB CONC 32.7 g/dL (33.0-37.0); MEAN PLATELET VOLUME 6.5 fL (7.2-11.7); MONO # 0.5 K/uL (0.0-0.8); MONO % 7.4 % (0.0-10.0); NEUT # 4.1 K/uL (1.8-7.0); NEUT % 66.6 % (50.0-75.0); RBC 4.3 Mil/uL (4.40-5.90); RED CELL DISTRIBUTION WIDTH 14.6 % (11.5-14.5); WHITE BLOOD COUNT 6.1 K/uL (4.8-10.8)
--- NOTE | 2018-11-11 19:13 | C.PDOC ---
History Of Present Illness 48 year old male presents to the ED for evaluation of depression and suicidal thoughts. Patient reports he has been using heroin and has been having thoughts of hurting himself. Patient denies HI, hallucinations, injury, fall, trauma. Time Seen by Provider: 11/11/18 19:13 Chief Complaint (Nursing): Psychiatric Evaluation History Per: Patient History/Exam Limitations: no limitations Onset/Duration Of Symptoms: Hrs Current Symptoms Are (Timing): Still Present Suicide/Self Injury Attempted (Context): None Modifying Factor(s): Narcotics Associated Symptoms: Depression, Suicidal Thoughts. denies: Suicidal Plan Recent travel outside of the [place]: No Additional History Per: Patient Past Medical History Reviewed: Historical Data, Nursing Documentation, Vital Signs Vital Signs: Last Vital Signs Temp 98.6 F 11/11/18 16:33 Pulse 85 11/11/18 16:33 Resp 16 11/11/18 16:33 BP 155/91 H 11/11/18 16:33 Pulse Ox 95 11/11/18 16:33 - Medical History PMH: Asthma, COPD, Depression, HTN, Hypercholesterolemia Denies: Diabetes, Hepatitis, HIV, Chronic Kidney Disease, Seizures, Sexually Transmitted Disease Surgical History: No Surg Hx - [facility] DETOXIFICATION SERVICES FOR SUBSTANCE ABUSE TREATMENT (07/14/18) GROUP PSYCHOTHERAPY (09/05/18) INDIV PSYCHOTHERAPY FOR SUBSTANCE ABUSE TREATMENT, SUPPORT (01/15/17) INDIVIDUAL PSYCHOTHERAPY, SUPPORTIVE (09/05/18) MEDICATION MANAGEMENT (07/14/18) MEDS MGMT FOR SUBSTANCE ABUSE TREATMENT, NICOTINE REPLACE (07/14/18) Family History: States: Unknown Family Hx - Social History Hx Tobacco Use: Yes Hx Alcohol Use: No Hx Substance Use: Yes - Immunization History Hx Tetanus Toxoid Vaccination: Yes Hx Influenza Vaccination: No Hx Pneumococcal Vaccination: No Review Of Systems Constitutional: Negative for: Fever, Chills Cardiovascular: Negative for: Chest Pain Respiratory: Negative for: Shortness of Breath Gastrointestinal: Negative for: Nausea, Vomiting, Abdominal Pain Skin: Negative for: Rash Neurological: Negative for: Weakness, Numbness Psych: Positive for: Depression, Suicidal ideation Physical Exam - Physical Exam Appears: Non-toxic, No Acute Distress, Other (depressed affect) Skin: Warm, Dry Head: Normacephalic Eye(s): bilateral: Normal Inspection Neck: Supple Chest: Symmetrical Cardiovascular: Rhythm Regular Respiratory: No Rales, No Rhonchi, No Wheezing Gastrointestinal/Abdominal: Soft, No Tenderness, No Guarding, No Rebound Extremity: Bilateral: Atraumatic, Normal Color And Temperature, Normal ROM Neurological/Psych: Oriented x3, Normal Speech, Normal Cognition Gait: Steady ED Course And Treatment - Laboratory Results Result Diagrams: 11/11/18 18:45 11/11/18 18:45 O2 Sat by Pulse Oximetry: 95 (On RA) Pulse Ox Interpretation: Normal Progress Note: Plan: - Labs. - UA. - Crisis. - 1:1 Obs Disposition Discussed With Dr.: Samantha Casillas [facility] took [facility] care at 8:47 PM Doctor Will See Patient In The: Hospital Counseled Patient/Family Regarding: Studies Performed, Diagnosis - Disposition Disposition: HOSPITALIZED Disposition Time: 19:13 Condition: FAIR Forms: [facility] (Georgian) - POA Present On Arrival: None - Clinical Impression Clinical Impression: Major depression, Opioid use disorder - Scribe Statement The provider has reviewed the documentation as recorded by the Scribe Chivo Zaragoza All medical record entries made by the Scribe were at my direction and personally dictated by me. I have reviewed the chart and agree that the record accurately reflects my personal performance of the history, physical exam, medical decision making, and the department course for this patient. I have also personally directed, reviewed, and agree with the discharge instructions and disposition. Decision To Admit - Pt Status Changed To: Hospital Disposition Of: Inpatient - Admit Certification Admit to Inpatient:: After my assessment, the patient will require hospitaliza tion for at least two midnights. This is because of the severity of symptoms shown, intensity of services needed, and/or the medical risk in this patient being treated as an outpatient. - InPatient: Physician Admission Certification: I certify that this patient requires 2 or more midnights of care for the following reason:: After my assessment, the patient will require hospitalization for at least two midnights. This is because of the severity of symptoms shown, intensity of services needed, and/or the medical risk in this patient being treated as an outpatient. - . Bed Request Type: Psychiatry Admitting Physician: Samantha Casillas Patient Diagnosis: Major depression, Opioid use disorder
[2018-11-11 19:14] LABS: ACETAMINOPHEN < 10.0 ug/mL (10.0-30.0); SALICYLATE < 1.0 mg/dL 1
[2018-11-11 19:15] LABS: ALB/GLOB RATIO 1.4 (1.0-2.1); ALBUMIN 3.8 g/dL (3.5-5.0); ALT/SGPT 36 U/L (21-72); AST/SGOT 37 U/L (17-59); BLOOD UREA NITROGEN 27 mg/dL (9-20); CALCIUM 8.8 mg/dl (8.6-10.4); GFR NON-AFRICAN AMERICAN > 60
[2018-11-11 19:19] LABS: BARBITURATES, UR NEGATIVE (NEGATIVE); BENZODIAZEPINES, UR NEGATIVE (NEGATIVE); PHENCYCLIDINE, UR NEGATIVE (NEGATIVE)
[2018-11-11 19:24] LABS: OPIATES, UR POSITIVE (NEGATIVE)
[2018-11-11 20:49] LABS: SQUAMOUS EPITHIAL < 1 /hpf (0-5); URINE BILIRUBIN NEGATIVE (NEGATIVE); URINE BLOOD NEGATIVE (NEGATIVE); URINE CLARITY Clear (Clear); URINE COLOR Yellow (YELLOW); URINE GLUCOSE (UA) NORMAL (Normal); URINE LEUKOCYTE ESTERASE NEG Leu/uL (Negative); URINE PROTEIN NEGATIVE (NEGATIVE); URINE UROBILINOGEN NORMAL mg/dL (0.2-1.0)
[2018-11-11 21:45] VITALS: O2SAT 96
--- NOTE | 2018-11-11 22:43 | PCM.BM ---
<Garfield Sun - Last Filed: 11/11/18 22:41> Treatment Plan Problems - Problems identified on initial assessmt Suicidal Ideation Date Initiated: 11/11/18 Time Initiated: 21:57 Assessment reference: NA Status: Active Hopelessness Date Initiated: 11/11/18 Time Initiated: 21:57 Assessment reference: NA Status: Active Treatment assets and liabiliti Patient Assests: cooperative, self-reliant, ADL independent, negotiates basic needs Patient Liabilities: live alone, financial problems, relationship conflicts, substance abuse (Heroin, Cocaine), medical problems (Hypertension) - Milieu Protocol Maintain good personal hygiene: daily Encourage regular showers, daily Remind patient to perform daily oral care, every shift Assist patient to perform ADL's Conduct patient checks and document Observation sheet: Q15 minutes Maintain personal safety: every shift Educate patient to report safety concerns to staff, every shift Monitor environment for contraband/sharps Medication safety: Monitor for expected outcome, potential side effects: every shift, Assess barriers to learning: every shift, Assess readiness for medication education: every shift <Samantha Casillas - Last Filed: 11/14/18 10:23> - Diagnosis (1) Bipolar disorder Status: Acute Interventions: 11/14/18 10:24 * Assess/adjust medications daily and /or as needed * See patient on an individual basis 7x/week to assess level of manic behaviors and stability * Discuss risks, benefits, side effects and alternatives of medications * (2) Opioid use disorder Status: Acute Interventions: 11/14/18 10:24 * Assess/adjust medications daily and /or as needed * See patient on an individual basis 7x/week to assess level of manic behaviors and stability * Discuss risks, benefits, side effects and alternatives of medications * <Symone Garcia - Last Filed: 11/14/18 15:37> Family Contact Family involvement: Patient does not wish Family/SO involvement Family contact: Patient declines to allow family contact at present - Goals for Treatment Patient goals for treatment: "I want to go to [facility] rehab." Discharge/Continuing Care - Education Needs Education Needs: Patient Medication, Patient Diagnosis/Disease Process, Patient Coping Skills, Patient Placement options, Patient Community resources - Discharge Discharge Criteria: Free of Suicidal thoughts, Free of agitation, Normal sleep pattern, Ability to care for self, No longer exhibiting s/s of withdrawal, Reduction of target symptoms Discharge to:: Substance Abuse Rehab - Treatment Team Participation Discussed with Family/SO: No Was Patient/Family/SO present at Treatment Team Meeting: Yes
[2018-11-12] MEDS ORDERED: Albuterol HFA 90 mcg/actuation (8 g) INH PRN (12:48)
--- NOTE | 2018-11-12 12:48 | PCM.PSYCH ---
Initial Psychiatric Evaluation - Initial Psychiatric Evaluation Type of Admission: Voluntary Legal Status: Capacity Chief Complaint (in patient's own words): I was feeling depressed and suicidal.' History of Present Illness and Precipitating Events: This is a 48 year old male who is single, unemployed, and homeless with a history of major depressive disorder. Patient presented to the ED with depressive symptoms and suicidal ideations and heroin use. Patient reports coming to the hospital because he felt like harming himself. Patient was kicked out of [facility] 2 months ago and became homeless, causing him to relapse on heroin and cocaine. Patient states he currently sniffs about 15 bags of heroin per day and smokes around 1 gram of cocaine per day for the last 5 years after being released from care home. His last use was yesterday. Patient states he smokes one pack of cigarettes per day. His longest time sober was 6 months in 2014. Patient was last hospitalized in August 2018 for similar reasons. Patient reports numbers suicide attempts by cutting, jumping in front of traffic, and overdosing on medication. Patient states he is currently experiencing withdrawal symptoms of stomach pain, cold sweats, headache, yawning, stomach cramps, and constipation. Patient stated he was depressed. He reports feelings of hopelessness and helplessness. He also reports irritability, agitation and racing thoughts. Patient denies homicidal ideations, visual or auditory hallucinations, or paranoia. PsychHx: major depression disorder FamPsychHx: father - alcohol abuse MedHx: HTN, COPD, asthma Allergies: denies Meds: trazodone, tiotropium, quetiapine, losartan, lisinopril, gapabentin, albuterol SurgHx: denies Current Medications: Active Medications Generic Name Dose Route Start Last Admin Trade Name Freq PRN Reason Stop Dose Admin Ibuprofen 600 mg 11/12/18 04:48 11/12/18 04:55 Motrin Tab PO 600 mg Q6 PRN Administration Pain, moderate (4-7) Pneumococcal Polyvalent Vaccine 0.5 ml 11/15/18 10:00 Pneumovax 23 Vaccine IM 11/15/18 10:01 .ONCE ONE Trazodone HCl 50 mg 11/11/18 22:11 11/11/18 22:45 Desyrel PO 50 mg HS PRN Administration Insomnia Past Psychiatric History - Past Psychiatric History Previous Treatment History: Inpatient Pertinent Medical Hx (Current Medical&Sleep Prob, Allergies): Allergies Allergy/AdvReac Type Severity Reaction Status Date / Time No Known Allergies Allergy Verified 11/11/18 16:37 QUEtiapine [SEROquel] 50 mg PO HS #30 tab 12/13/17 Lorazepam [Ativan] 1 mg PO DAILY 07/14/18 cloNIDine [clonidine HCl] 0.2 mg PO BID 07/14/18 Lisinopril [Zestril] 2.5 mg PO DAILY #30 tab 07/18/18 Tiotropium [place] Inhaler [Spiriva Inhalation Handihaler Device] 1 inhaler INH ONCE #1 inhaler 07/18/18 Tiotropium [Spiriva] 18 mcg INH RQ24 #1 cap 07/18/18 Albuterol HFA [Ventolin HFA 90 mcg/actuation (8 g)] 1 puff INH RQ6 PRN #30 inhaler 09/11/18 Gabapentin [Neurontin] 300 mg PO BID #60 cap 09/11/18 Losartan [Cozaar] 50 mg PO DAILY #30 tab 09/11/18 traZODone [Desyrel] 50 mg PO HS #30 tab 09/11/18 Review of Systems - Review of Systems All systems: reviewed and no additional remarkable complaints except - Psychiatric Psychiatric: Anxiety, Irritability, Mood Swings, Suicidal Ideation Mental Status Examination - Personal Presentation Personal Presentation: Looks stated age - Affect Affect: Broad, Depressed - Motor Activity Motor Activity: Psychomotor Agitation - Reliability in Providing Information Reliability in Providing Information: Poor, due to altered mood - Speech Speech: Organized - Mood Mood: Depressed, Anxious - Formal Thought Process Formal Thought Process: No Impairment - Obsessions/Compulsions Obsessions: No Compulsions: No - Cognitive Functions Orientation: Person, Place, Situation, Time Sensorium: Alert Attention/Concentration: Attentive Abstract Thinking: [place] Estimate of Intelligence: Below average Judgement: Imparied, as evidence by: Poor judgement, Imparied, as evidence by: Lack of insight into illness - Risk Risk: Suicidal, Withdrawal, Diminished functioning - Limitations Limitations: Living alone DSM 5 DX - DSM 5 DSM 5 Diagnosis: Bipolar disorder depressed severe without psychotic features Opioid use disorder severe Opioid withdrawal Cocaine use disorder severe - Recommended/Plan of Treatment Treatment Recommendations and Plan of Treatment: Bipolar disorder depressed severe without psychotic features Opioid use disorder severe Opioid withdrawal Cocaine use disorder severe CBT Psychoeducation Supportive therapy and group therapy Hydroxyzine for anxiety Trazodone for insomnia Methadone taper Neurontin for augmentation Withdrawal medications including Bentyl/Imodium etc. Seroquel for insomnia
[2018-11-13] MEDS: Tiotropium 18 mcg Cap For Inhalation INH SCH (08:00)
--- NOTE | 2018-11-13 10:21 | PCM.PYCHPN ---
Psychiatric Progress Note - Psychiatric Progress Note Patient seen today, length of contact: 15 min Patient Chief Complaint: I m feeling depressed.' Problems Identified/Issues Discussed: Patient seen and evaluated, chart reviewed and discussed with the nurse. Pt reports depressed mood, and reports feelings of hopelessness and helplessness. He still reports irritability and agitation. He remained isolated and withdrawn, and confined to his room. Patient reports of withdrawal symptoms including abdominal cramps, anxiety, headaches and sweating. He denies any auditory hallucinations, visual hallucinations, or any paranoia. Patient is compliant with medications and denies any side effects. Support and psychoeducation given. Medication Change: Yes Medical Record Reviewed: Yes Mental Status Examination - Cognitive Function Orientation: Person, Place, Situation, Time Memory: Intact Attention: WNL Concentration: Poor Association: WNL Fund of Knowledge: Poor - Mood Mood: Depressed, Anxious - Affect Affect: Broad, Depressed - Speech Speech: Soft - Formal Thought Process Formal Thought Process: No Impairment - Suicidal Ideation Suicidal Ideation: No - Homicidal Ideation Homicidal Ideation: No Goal/Treatment Plan - Goal/Treatment Plan Need for Continued Stay: Remain at risks for inpatient hospitalization Progress Toward Problem(s) and Goals/Treatment Plan: Bipolar disorder depressed severe without psychotic features Opioid use disorder severe Opioid withdrawal Cocaine use disorder severe CBT Psychoeducation Supportive therapy and group therapy Hydroxyzine for anxiety Trazodone for insomnia Methadone taper Neurontin for augmentation Withdrawal medications including Bentyl/Imodium etc. Seroquel for insomnia
[2018-11-14] MEDS: Tiotropium 18 mcg Cap For Inhalation INH SCH (08:15)
--- NOTE | 2018-11-14 09:47 | PCM.PYCHPN ---
Psychiatric Progress Note - Psychiatric Progress Note Patient seen today, length of contact: 15 min Patient Chief Complaint: I m feeling depressed.' Problems Identified/Issues Discussed: Patient seen and evaluated, chart reviewed and discussed with the nurse. Pt reports some improvement in his mood and reports improvement in the feelings of hopelessness and helplessness. He still reports withdrawal symptoms including abdominal cramps, anxiety, headaches and sweating. He denies any auditory hallucinations, visual hallucinations, or any paranoia. Patient is compliant with medications and denies any side effects. Support and psychoeducation given. Medication Change: Yes Medical Record Reviewed: Yes Mental Status Examination - Cognitive Function Orientation: Person, Place, Situation, Time Memory: Intact Attention: WNL Concentration: Poor Association: WNL Fund of Knowledge: Poor - Mood Mood: Depressed, Anxious - Affect Affect: Broad, Depressed - Speech Speech: Soft - Formal Thought Process Formal Thought Process: No Impairment - Suicidal Ideation Suicidal Ideation: No - Homicidal Ideation Homicidal Ideation: No Goal/Treatment Plan - Goal/Treatment Plan Need for Continued Stay: Remain at risks for inpatient hospitalization Progress Toward Problem(s) and Goals/Treatment Plan: Bipolar disorder depressed severe without psychotic features Opioid use disorder severe Opioid withdrawal Cocaine use disorder severe CBT Psychoeducation Supportive therapy and group therapy Hydroxyzine for anxiety Trazodone for insomnia Methadone taper Neurontin for augmentation Withdrawal medications including Bentyl/Imodium etc. Seroquel for insomnia
[2018-11-15] MEDS: Tiotropium 18 mcg Cap For Inhalation INH SCH (08:12)
[2018-11-15] MEDS ORDERED: Pneumococcal 23-Valent Vaccine IM ONE (10:00)
[2018-11-15] MEDS ORDERED: Bacitracin Ointment 30 GM TUBE TOP PRN (16:15)
--- NOTE | 2018-11-15 23:08 | PCM.PYCHPN ---
Psychiatric Progress Note - Psychiatric Progress Note Patient seen today, length of contact: 15 min Patient Chief Complaint: "I feel a little better today" Problems Identified/Issues Discussed: The pt is seen, chart reviewed, case is discussed with staff. The pt is compliant with medications and reports no side-effects. Symptoms are improving but needs more time to stabilize and to avoid relapse. Pt attends groups and activities. Support given, psycho-education provided. After care discussed. Medication Change: No Medical Record Reviewed: Yes Mental Status Examination - Cognitive Function Orientation: Person, Place, Situation, Time Memory: Intact Attention: WNL Concentration: Poor Association: WNL Fund of Knowledge: Poor - Mood Mood: Depressed, Anxious - Affect Affect: Broad, Depressed - Speech Speech: Soft - Formal Thought Process Formal Thought Process: No Impairment - Suicidal Ideation Suicidal Ideation: No - Homicidal Ideation Homicidal Ideation: No Goal/Treatment Plan - Goal/Treatment Plan Need for Continued Stay: Remain at risks for inpatient hospitalization Progress Toward Problem(s) and Goals/Treatment Plan: Continue medications Support and psychoeducation daily Attend groups and activities daily Individual therapy After care planning by HOLLI and the team
[2018-11-16] MEDS: Tiotropium 18 mcg Cap For Inhalation INH SCH (08:18)
[2018-11-16 09:27] VITALS: RESP 19; TEMP 98.6
[2018-11-16 15:49] VITALS: BP 98/66; PULSE 99
--- NOTE | 2018-11-16 23:32 | PCM.PYCHDC ---
Mental Status Examination - Mental Status Examination Orientation: Person, Place, Situation, Time Memory: Intact Mood: Neutral Affect: Constricted Speech: Appropriate Attention: WNL Concentration: WNL Association: WNL Fund of Knowledge: WNL Formal Thought Process: No Impairment Suicidal Ideation: No Current Homicidal Ideation?: No Discharge Summary - Discharge Note Reason for Hospitalization: Bipolar disorder depressed severe without psychotic features Opioid use disorder severe Opioid withdrawal Cocaine use disorder severe Consultations:: List each consultation separately and include: 1. Reason for request. 2. Findings. 3. Follow-up Summary of Hospital Course include:: 1. Description of specific treatment plan utilized for patients during their course of treatmen. 2. Summarize the time- course for resolution of acute symptoms and/or regressed behaviors. 3. Describe issues identified and worked on during hospitalization. 4. Describe medication utilized. 5. Describe medical problems identified and treated. 6. Reassessment of suicide risk - Diagnosis (1) Bipolar 1 disorder Status: Chronic Priority: Medium (2) Opioid use disorder Status: Chronic Priority: Medium (3) Cocaine abuse Status: Chronic Priority: Medium - Final Diagnosis (DSM 5) Condition upon Discharge: FAIR Disposition: AGAINST MEDICAL ADVICE Follow-up Treatment Plan: Continue medications Support and psychoeducation daily Attend groups and activities daily Individual therapy After care planning by HOLLI and the team
== END 2018-11-16 16:20 | disposition left against medical advice (07) | DRG 430 ==
LOC: C.ER 16:18 → C.9E 20:46 → C.5E 21:26
PROVIDERS: ADMIT Psychiatry & Neurology Psychiatry; ATTEND Psychiatry & Neurology Psychiatry
PROC: GZHZZZZ Group Psychotherapy (ICD-10-PCS; principal; 2018-11-11)
PROC: HZ2ZZZZ Detoxification Services for Substance Abuse Treatment (ICD-10-PCS; 2018-11-11)
PROC: HZ52ZZZ Individual Psychotherapy for Substance Abuse Treatment, Cognitive-Behavioral (ICD-10-PCS; 2018-11-11)
PROC: HZ59ZZZ Individual Psychotherapy for Substance Abuse Treatment, Supportive (ICD-10-PCS; 2018-11-11)
PROC: HZ56ZZZ Individual Psychotherapy for Substance Abuse Treatment, Psychoeducation (ICD-10-PCS; 2018-11-11)
PROC: HZ42ZZZ Group Counseling for Substance Abuse Treatment, Cognitive-Behavioral (ICD-10-PCS; 2018-11-11)
PROC: HZ46ZZZ Group Counseling for Substance Abuse Treatment, Psychoeducation (ICD-10-PCS; 2018-11-11)
PROC: GZ58ZZZ Individual Psychotherapy, Cognitive-Behavioral (ICD-10-PCS; 2018-11-11)
PROC: GZ56ZZZ Individual Psychotherapy, Supportive (ICD-10-PCS; 2018-11-11)
DX: F31.4 Bipolar disorder, current episode depressed, severe, without psychotic features (principal); F11.23 Opioid dependence with withdrawal; F14.20 Cocaine dependence, uncomplicated; J44.9 Chronic obstructive pulmonary disease, unspecified; R45.851 Suicidal ideations; E78.00 Pure hypercholesterolemia, unspecified; F17.210 Nicotine dependence, cigarettes, uncomplicated; F41.9 Anxiety disorder, unspecified; G47.00 Insomnia, unspecified; I10 Essential (primary) hypertension; Z59.0 Homelessness; Z91.5 Personal history of self-harm